=== PATIENT | female | born 1955 | race Caucasian/White ===

== ENCOUNTER 2020-02-06 07:43 | Outpatient (CLI) | payer MEDICARE, SELFPAY ==
--- NOTE | ~2020-02-06 | MM_ITS ---
EXAMINATION: MM screening [facility] BI w [facility] HISTORY: Screening mammogram TECHNIQUE: Craniocaudal and mediolateral oblique 3-D tomosynthesis images were obtained and synthetic 2-D images were generated. CAD analysis was submitted and interpreted. COMPARISON: No prior mammogram is available for comparison at this institution. BREAST PARENCHYMAL COMPOSITION: There are scattered areas of fibroglandular density. FINDINGS: There is no evidence of suspicious mass, calcification, or architectural distortion to sugg est malignancy in either breast. There has been no suspicious interval change. IMPRESSION: 1. No mammographic evidence of malignancy. 2. Recommend routine screening mammography in one year. BI-RADS Category 1: Negative Reviewed, dictated and finalized at location A.
== END 2020-02-06 07:44 | disposition home or self-care (01) ==
LOC: CHSIMG 07:46
PROVIDERS: PCP Internal Medicine; Visit Provider Internal Medicine
DX: Z12.31 Encounter for screening mammogram for malignant neoplasm of breast (principal)
CPT/HCPCS: 77063; 77067

== ENCOUNTER 2020-05-20 07:14 | Outpatient (CLI) | payer MEDICARE, SELFPAY ==
[2020-05-20 07:50] LABS: Hemoglobin A1C 9.3 % (<5.7)
[2020-05-20 07:55] LABS: Basophils Absolute Auto 0.08 K/mm3 (0.00-0.10); Basophils Percent Auto 0.9 % (0.0-1.0); Eosinophils Absolute Auto 0.34 K/mm3 (0.02-0.50); Eosinophils Percent Auto 3.7 % (1.0-6.0); Hematocrit 44.6 % (35.0-49.0); Hemoglobin 14.6 g/dL (12.0-15.0); Immature Granulocyte Absolute 0.02 K/mm3 (0.00-0.00); Immature Granulocyte Percent A 0.2 % (0.0-0.0); Lymphocytes Absolute Auto 3.24 K/mm3 (1.10-4.50); Lymphocytes Percent Auto 35.1 % (18.0-42.0); Mean Corpuscular HGB Conc 32.7 g/dL (32.0-36.0); Mean Corpuscular Hemoglobin 28.3 pg (27.0-31.0); Mean Corpuscular Volume 86.6 fL (78.0-102.0); Mean Platelet Volume 12.2 fl (9.2-11.8); Monocytes Absolute Auto 0.63 K/mm3 (0.10-0.90); Monocytes Percent Auto 6.8 % (2.0-11.0); Neutrophils Absolute Auto 4.9 K/mm3 (1.7-7.2); Neutrophils Percent Auto 53.3 % (50.0-70.0); Platelet Count Result 187 K/mm3 (150-420); Red Blood Count 5.15 M/mm3 (4.20-5.40); Red Cell Distribution Width 13.1 % (11.6-14.4); White Blood Count 9.2 K/mm3 (4.8-10.8)
[2020-05-20 08:13] LABS: Alanine Aminotransferase 44 U/L (14-59); Albumin Level 3.4 g/dL (3.4-5.0); Alkaline Phosphatase 136 U/L (46-116); Anion Gap 6.3 mmol/L (7-16); Aspartate Amino Transferase 25 U/L (15-37); Bilirubin,Total 0.4 mg/dL (0.00-1.00); Blood Urea Nitrogen 21 mg/dL (7-18); Calcium 9.1 mg/dL (8.5-10.1); Carbon Dioxide 35 mmol/L (21-32); Chloride 101 mmol/L (98-108); Cholesterol 131 mg/dL (0-200); Estimated Glomerular Filt Rate 49; Glucose 249 mg/dL (70-99); HDL Direct 48 mg/dL (40-60); LDL Cholesterol Calculated 46 mg/dL (<130); Osmolality Calculated 297 mOsm/kg (285-295); Potassium 4.3 mmol/L (3.5-5.1); Sodium 138 mmol/L (136-145); Total Protein 6.9 g/dL (6.4-8.2); Triglycerides 184 mg/dL (0-150)
== END 2020-05-20 07:15 | disposition home or self-care (01) ==
LOC: CHSLAB 07:15
PROVIDERS: PCP Internal Medicine; Visit Provider Internal Medicine
DX: E78.5 Hyperlipidemia, unspecified (principal); E11.9 Type 2 diabetes mellitus without complications; I10 Essential (primary) hypertension
CPT/HCPCS: 36415; 80053; 80061; 83036; 85025

== ENCOUNTER 2020-05-21 11:18 | Outpatient (CLI) | payer MEDICARE, SELFPAY ==
--- NOTE | ~2020-05-21 | XR_ITS ---
EXAMINATION: XR lumbar spine 2-3V DATE: 05/21/2020 11:48 INDICATION: Low back pain TECHNIQUE: Anteroposterior and lateral views of the lumbar spine, and cone-down lateral view of the l umbosacral junction were obtained. COMPARISON: None. FINDINGS: Bone alignment is normal. There is no fracture. The vertebral body heights are normal. Ther e is severe loss of intervertebral disc space height throughout the lumbar spine. Severe facet osteoa rthritis is also seen throughout the lumbar spine. Degenerative osteophytes project from the anterior endplates of multiple vertebral bodies. IMPRESSION: 1. Severe lumbar spondylosis without acute findings. Reviewed, dictated and finalized at location B.
--- NOTE | ~2020-05-21 | XR_ITS ---
EXAMINATION: XR hip BI wo pelvis INDICATION: Hip pain TECHNIQUE: Three views of each hip are obtained. COMPARISON: None available FINDINGS: Bone alignment is normal. There is no fracture. Mild hip osteoarthritis is noted. The soft tissues are unremarkable. IMPRESSION: 1. Mild osteoarthritis without acute osseous findings. Reviewed, dictated and finalized at location B.
== END 2020-05-21 11:19 | disposition home or self-care (01) ==
LOC: CHSIMG 11:19
PROVIDERS: PCP Internal Medicine; Visit Provider Internal Medicine
DX: M25.552 Pain in left hip (principal); M54.9 Dorsalgia, unspecified
CPT/HCPCS: 72100; 73521

== ENCOUNTER 2020-07-12 11:42 | Outpatient (CLI) | payer MEDICARE, SELFPAY ==
--- NOTE | ~2020-07-12 | XR_ITS ---
EXAMINATION: XR chest 2V EXAM DATE: 07/12/2020 12:03 INDICATION: Pulmonary nodule shortness of breath. TECHNIQUE: Frontal and lateral projections of the chest obtained and reviewed. Comparison is made to prior examination from 10/13/2017. FINDINGS: The lungs are clear. There are no pleural effusions. The cardiomediastinal silhouette is within normal limits. There is no pneumothorax suspected. The bones and soft tissues are unremarkab le. Left epigastric surgical clips. IMPRESSION: No acute cardiopulmonary findings. Reviewed, dictated and finalized at location A.
== END 2020-07-12 11:43 | disposition home or self-care (01) ==
LOC: CHSIMG 11:45
PROVIDERS: PCP Internal Medicine; Visit Provider Internal Medicine Pulmonary Disease
DX: R91.1 Solitary pulmonary nodule (principal)
CPT/HCPCS: 71046

== ENCOUNTER 2021-01-06 07:02 | Outpatient (CLI) | payer MEDICARE, SELFPAY ==
[2021-01-06 07:34] LABS: Basophils Absolute Auto 0.08 K/mm3 (0.00-0.10); Basophils Percent Auto 1.1 % (0.0-1.0); Eosinophils Absolute Auto 0.44 K/mm3 (0.02-0.50); Hematocrit 43.2 % (35.0-49.0); Hemoglobin 14.1 g/dL (12.0-15.0); Immature Granulocyte Absolute 0.02 K/mm3 (0.00-0.00); Immature Granulocyte Percent A 0.3 % (0.0-0.0); Lymphocytes Absolute Auto 2.67 K/mm3 (1.10-4.50); Lymphocytes Percent Auto 36.2 % (18.0-42.0); Mean Corpuscular HGB Conc 32.6 g/dL (32.0-36.0); Mean Corpuscular Hemoglobin 28.3 pg (27.0-31.0); Mean Corpuscular Volume 86.7 fL (78.0-102.0); Mean Platelet Volume 12.1 fl (9.2-11.8); Monocytes Absolute Auto 0.84 K/mm3 (0.10-0.90); Monocytes Percent Auto 11.4 % (2.0-11.0); Neutrophils Absolute Auto 3.3 K/mm3 (1.7-7.2); Platelet Count Result 196 K/mm3 (150-420); Red Blood Count 4.98 M/mm3 (4.20-5.40); Red Cell Distribution Width 13.3 % (11.6-14.4); White Blood Count 7.4 K/mm3 (4.8-10.8)
[2021-01-06 08:12] LABS: Alanine Aminotransferase 57 U/L (14-59); Albumin Level 3.6 g/dL (3.4-5.0); Alkaline Phosphatase 114 U/L (46-116); Anion Gap 9 mmol/L (8-16); Aspartate Amino Transferase 36 U/L (15-37); Bilirubin,Total 0.4 mg/dL (0.00-1.00); Blood Urea Nitrogen 24 mg/dL (7-18); Calcium 9.4 mg/dL (8.5-10.1); Carbon Dioxide 30 mmol/L (21-32); Chloride 104 mmol/L (98-108); Cholesterol 154 mg/dL (0-200); Estimated Glomerular Filt Rate 41; Glucose 150 mg/dL (70-99); HDL Direct 48 mg/dL (40-60); LDL Cholesterol Calculated 74 mg/dL (<130); Osmolality Calculated 303 mOsm/kg (285-295); Potassium 4.2 mmol/L (3.5-5.1); Sodium 143 mmol/L (136-145); Total Protein 7.1 g/dL (6.4-8.2); Triglycerides 162 mg/dL (0-150)
== END 2021-01-06 07:03 | disposition home or self-care (01) ==
LOC: CHSLAB 07:04
PROVIDERS: PCP Internal Medicine; Visit Provider Internal Medicine
DX: E11.9 Type 2 diabetes mellitus without complications (principal); E78.5 Hyperlipidemia, unspecified; I10 Essential (primary) hypertension
CPT/HCPCS: 36415; 80053; 80061; 83036; 85025

== ENCOUNTER 2021-02-19 08:19 | Emergency (ER) | payer MEDICARE, SELFPAY ==
--- NOTE | ~2021-02-19 | CT_ITS ---
EXAMINATION: CT abdomen pelvis wo con DATE: 02/19/2021 09:05 INDICATION: Right flank pain TECHNIQUE: Computed tomography (CT) of the abdomen and pelvis was performed without intravenous contr ast. The dose-length product was 1144.17 mGy-cm. Automated exposure control and iterative reconstruct ion technique were employed. COMPARISON: CT dated 10/16/2017 FINDINGS: Lung bases are unremarkable. No significant pleural or pericardial effusions. There are yasmin gical changes in the left upper abdomen. No significant vascular abnormality. There are surgical frey ges along the anterior abdominal wall. The liver, spleen, pancreas, adrenal glands and kidneys are unremarkable. No renal/ureteral stones or hydronephrosis. Nonobstructive bowel gas pattern. Moderate colonic fecal loading. Moderate lumbar sp ondylosis. IMPRESSION: 1. No acute abdominal abnormality. Reviewed, dictated and finalized at location B.
[2021-02-19 08:20] VITALS: BP 134/64; PULSE 71; RESP 18; TEMP 36.9; O2SAT 100
--- NOTE | 2021-02-19 08:24 | ED.GENADULT ---
HPI - General Adult General Chief complaint: Back Pain/Injury Stated complaint: AMBULANCE Time Seen by Provider: 02/19/21 08:23 Source: patient and EMS Mode of arrival: EMS Limitations: no limitations History of Present Illness HPI narrative: Pratibha is a 65F with a PMH of HTN, GERD, DMII, arthritis, HLD and eye spasms that presented to the ED with right flank pain. It started 2 days ago but became much worse today. It is in the right flank and mid back. It is associated with nausea but no vomiting. No diarrhea or constipation. No CP or SOB or abdominal pain. Related Data Home Medications Medication Instructions Recorded Confirmed aspirin 81 mg PO DAILY 02/19/21 02/19/21 atorvastatin 10 mg PO DAILY 02/19/21 02/19/21 insulin detemir U-100 [Levemir 30 unit SUBCUT QAM 02/19/21 02/19/21 FlexTouch U-100 Insuln] insulin detemir U-100 [Levemir 30 unit SUBCUT QPM 02/19/21 02/19/21 FlexTouch U-100 Insuln] losartan-hydrochlorothiazide 1 tablet PO DAILY 02/19/21 02/19/21 magnesium 400 mg PO BID 02/19/21 02/19/21 methylphenidate HCl 5 mg PO DAILY 02/19/21 02/19/21 nifedipine 90 mg PO DAILY 02/19/21 02/19/21 pantoprazole 40 mg PO DAILY 02/19/21 02/19/21 Allergies Allergy/AdvReac Type Severity Reaction Status Date / Time No Known Allergies Allergy Unknown Verified 03/13/15 07:31 Review of Systems Constitutional: Constitutional: Denies chills, Denies fever(s) and Denies weakness Eyes: Eyes: Reports no additional eye complaints ENT: Reports system reviewed and no additional complaints, except as documented Cardiovascular: Cardiovascular: Reports no additional cardiovascular complaints Respiratory: Respiratory: Reports no additional respiratory complaints Gastrointestinal: Gastrointestinal: Reports as per HPI Genitourinary: Genitourinary: Reports as per HPI Musculoskeletal: Musculoskeletal: Reports no additional musculoskeletal complaints Integumentary/Breasts: Skin/Breast: Reports system reviewed and no additional complaints, except as docu Neurologic: Reports system reviewed and no additional complaints, except as documented Psychiatric: Psychiatric: Reports no additional psychiatric complaints Endocrine: Endocrine: Reports no additional endocrine complaints Hematologic/Lymphatic: Hematologic/Lymphatic: Reports no additional hematologic/lymphatic complaints Allergic/Immunologic: Allergic/Immunologic: Reports no additional allergic/immunologic complaints Exam Const: General: no acute distress; No confusion Orientation/consciousness: patient oriented x3 Limitations: No altered mental status HENMT: Head: normal to inspection Mouth: Yes Normal oral and palatal mucosa present Eyes: Conjunctivae: conjunctivae normal Pupils: Equal, round and reactive pupils present Neck: Neck: normal visual inspection Chest: Chest palpation & inspection: normal inspection of the chest Resp: Effort & Inspection: normal respiratory effort Auscultation: clear to auscultation bilaterally Cardio: Rate: regular rate Rhythm: regular rhythm GI: Inspection: non-distended GI Palp: Yes Soft to palpation, No Tenderness to palpation present (GI), No Guarding due to palpation present (GI) and No Rigid due to palpation : Other: Right sided CVA tenderness Skin: General skin exam: normal color Rashes: no rashes Neuro: General: patient oriented x3 and moves all extremities Extrem: General: normal to inspection Psych: Mental Status: mental status grossly normal Course Course Emergency Course: Pratibha was evaluated. Ordered toradol and morphine for the pain and zofran for the nausea as well as labs and CT. Labs were largely unremarkable. UA looked contaminated but did show bacteria and WBC as well as trace leuk esterase. Will treat for UTI but pyelonephritis is unlikely given normal WBC and no fever. Given normal labs other abdominal process (pancreatitis, obstruction, infection) is unlikely and troponin is unlikely making atypi
[2021-02-19 08:31] LABS: Add Urine Microscopic? YES; Appearance Urine Sl Cloudy (Clear); Bilirubin Urine 1+ (Negative); Blood Urine Negative (Negative); Color Urine Yellow (Yellow); Glucose Urine UA Trace (Negative); Ketones Urine Trace (Negative); Leukocyte Esterase Ur Trace (Negative); Nitrate Urine Negative (Negative); Protein Urine 1+ (Negative); Specific Grav Ur 1.025 (1.010-1.020)
[2021-02-19] MEDS: MORPHINE SULFATE (*CRX) 4 MG/ML INJ IV PUSH (08:35)
[2021-02-19] MEDS: ONDANSETRON INJ 4 MG/2 ML VIAL IV PUSH (08:35)
[2021-02-19] MEDS: KETOROLAC 30 MG/ML VIAL (*BKC) IM (08:35)
[2021-02-19 08:40] LABS: Bacteria Urine 3+ /hpf; RBC Urine None seen /hpf (0-2); Squamous Epithelial Cell Urine Moderate /hpf (Few)
[2021-02-19 08:51] LABS: Basophils Absolute Auto 0.11 K/mm3 (0.00-0.10); Basophils Percent Auto 1.1 % (0.0-1.0); Eosinophils Absolute Auto 0.37 K/mm3 (0.02-0.50); Eosinophils Percent Auto 3.8 % (1.0-6.0); Hematocrit 43.3 % (35.0-49.0); Hemoglobin 13.9 g/dL (12.0-15.0); Immature Granulocyte Absolute 0.03 K/mm3 (0.00-0.00); Immature Granulocyte Percent A 0.3 % (0.0-0.0); Lymphocytes Absolute Auto 3.43 K/mm3 (1.10-4.50); Lymphocytes Percent Auto 35.3 % (18.0-42.0); Mean Corpuscular HGB Conc 32.1 g/dL (32.0-36.0); Mean Corpuscular Hemoglobin 27.9 pg (27.0-31.0); Mean Corpuscular Volume 86.8 fL (78.0-102.0); Mean Platelet Volume 11.9 fl (9.2-11.8); Monocytes Absolute Auto 0.65 K/mm3 (0.10-0.90); Monocytes Percent Auto 6.7 % (2.0-11.0); Neutrophils Absolute Auto 5.1 K/mm3 (1.7-7.2); Neutrophils Percent Auto 52.8 % (50.0-70.0); Platelet Count Result 188 K/mm3 (150-420); Red Blood Count 4.99 M/mm3 (4.20-5.40); Red Cell Distribution Width 13.4 % (11.6-14.4); White Blood Count 9.7 K/mm3 (4.8-10.8)
[2021-02-19 09:08] LABS: Alanine Aminotransferase 25 U/L (14-59); Albumin Level 3.3 g/dL (3.4-5.0); Alkaline Phosphatase 112 U/L (46-116); Anion Gap 8 mmol/L (8-16); Aspartate Amino Transferase 16 U/L (15-37); Bilirubin,Total 0.5 mg/dL (0.00-1.00); Blood Urea Nitrogen 27 mg/dL (7-18); Calcium 9.4 mg/dL (8.5-10.1); Carbon Dioxide 28 mmol/L (21-32); Chloride 101 mmol/L (98-108); Estimated Glomerular Filt Rate 44; Glucose 182 mg/dL (70-99); Lipase 78 U/L (73-393); Osmolality Calculated 294 mOsm/kg (285-295); Potassium 3.4 mmol/L (3.5-5.1); Sodium 137 mmol/L (136-145)
[2021-02-19 09:11] LABS: Troponin I < 4.0 ng/L (0.00-60.4)
[2021-02-19] MEDS: CEPHALEXIN 500 MG CAPSULE PO (09:30)
[2021-02-19 09:42] VITALS: BP 137/56; PULSE 72; O2SAT 97
== END 2021-02-19 09:43 | disposition home or self-care (01) ==
PROVIDERS: Emergency Provider Family Medicine; PCP Internal Medicine
DX: M54.6 Pain in thoracic spine (principal); N39.0 Urinary tract infection, site not specified
CPT/HCPCS: 36415; 74176; 80053; 81001; 83690; 84484; 85025; 96372; 96374; 96375; 99283; 99284; A9270; J1885; J2270; J2405

== ENCOUNTER 2021-04-22 13:15 | Outpatient (CLI) | payer MEDICARE, SELFPAY ==
--- NOTE | ~2021-04-22 | MM_ITS ---
EXAMINATION: MM screening [facility] BI w [facility] HISTORY: Screening TECHNIQUE: Craniocaudal and mediolateral oblique 3-D tomosynthesis images were obtained and synthetic 2-D images were generated. CAD analysis was submitted and interpreted. COMPARISON: Comparison to multiple prior studies sequentially, with oldest reviewed study dated 09/24. BREAST PARENCHYMAL COMPOSITION: There are scattered areas of fibroglandular density. FINDINGS: There is no evidence of suspicious mass, calcification, or architectural distortion to sugg est malignancy in either breast. There has been no suspicious interval change. IMPRESSION: 1. No mammographic evidence of malignancy. 2. Recommend routine screening mammography in one year. BI-RADS Category 1: Negative Reviewed, dictated and finalized at location A.
== END 2021-04-22 13:16 | disposition home or self-care (01) ==
PROVIDERS: PCP Internal Medicine; Visit Provider Internal Medicine
DX: Z12.31 Encounter for screening mammogram for malignant neoplasm of breast (principal)
CPT/HCPCS: 77063; 77067

== ENCOUNTER 2021-07-25 07:44 | Outpatient (CLI) | payer MEDICARE, SELFPAY ==
[2021-07-25 07:56] LABS: Basophils Absolute Auto 0.07 K/mm3 (0.00-0.10); Basophils Percent Auto 0.7 % (0.0-1.0); Eosinophils Absolute Auto 0.33 K/mm3 (0.02-0.50); Eosinophils Percent Auto 3.4 % (1.0-6.0); Hematocrit 43.1 % (35.0-42.0); Hemoglobin 14.3 g/dL (11.7-13.8); Immature Granulocyte Absolute 0.04 K/mm3 (0.00-0.00); Immature Granulocyte Percent A 0.4 % (0.0-0.0); Lymphocytes Absolute Auto 2.52 K/mm3 (1.10-4.50); Lymphocytes Percent Auto 25.7 % (18.0-42.0); Mean Corpuscular HGB Conc 33.2 g/dL (32.0-36.0); Mean Corpuscular Hemoglobin 28.3 pg (27.0-31.0); Mean Corpuscular Volume 85.2 fL (78.0-102.0); Mean Platelet Volume 10.8 fl (9.2-11.8); Monocytes Absolute Auto 0.81 K/mm3 (0.10-0.90); Monocytes Percent Auto 8.3 % (2.0-11.0); Neutrophils Percent Auto 61.5 % (50.0-70.0); Platelet Count Result 255 K/mm3 (150-420); Red Blood Count 5.06 M/mm3 (4.20-5.40); Red Cell Distribution Width 12.6 % (11.6-14.4); White Blood Count 9.8 K/mm3 (4.8-10.8)
[2021-07-25 08:08] LABS: Hemoglobin A1C 9.9 % (<5.7)
[2021-07-25 08:38] LABS: Alanine Aminotransferase 29 U/L (14-59); Albumin Level 3.3 g/dL (3.4-5.0); Alkaline Phosphatase 118 U/L (46-116); Anion Gap 11 mmol/L (8-16); Aspartate Amino Transferase 16 U/L (15-37); Bilirubin,Total 0.5 mg/dL (0.00-1.00); Blood Urea Nitrogen 27 mg/dL (7-18); Calcium 9.3 mg/dL (8.5-10.1); Carbon Dioxide 29 mmol/L (21-32); Chloride 102 mmol/L (98-108); Cholesterol 158 mg/dL (0-200); Estimated Glomerular Filt Rate 48; Glucose 244 mg/dL (70-99); HDL Direct 49 mg/dL (40-60); LDL Cholesterol Calculated 70 mg/dL (<130); Osmolality Calculated 307 mOsm/kg (285-295); Sodium 142 mmol/L (136-145); Thyroid Stimulating Hormone 1.33 uIU/mL (0.36-3.74); Total Protein 7.1 g/dL (6.4-8.2); Triglycerides 196 mg/dL (0-150)
== END 2021-07-25 07:45 | disposition home or self-care (01) ==
LOC: CHSLAB 07:47
PROVIDERS: PCP Internal Medicine; Visit Provider Internal Medicine
DX: E11.9 Type 2 diabetes mellitus without complications (principal); E78.5 Hyperlipidemia, unspecified; E66.9 Obesity, unspecified
CPT/HCPCS: 36415; 80053; 80061; 83036; 84443; 85025

== ENCOUNTER 2021-11-21 11:15 | Outpatient (CLI) | payer MEDICARE, SELFPAY ==
[2021-11-21 11:34] LABS: Basophils Absolute Auto 0.08 K/mm3 (0.00-0.10); Basophils Percent Auto 0.7 % (0.0-1.0); Eosinophils Absolute Auto 0.31 K/mm3 (0.02-0.50); Eosinophils Percent Auto 2.9 % (1.0-6.0); Hematocrit 47.4 % (35.0-42.0); Hemoglobin 15.6 g/dL (11.7-13.8); Immature Granulocyte Absolute 0.03 K/mm3 (0.00-0.00); Immature Granulocyte Percent A 0.3 % (0.0-0.0); Mean Corpuscular HGB Conc 32.9 g/dL (32.0-36.0); Mean Corpuscular Volume 84.9 fL (78.0-102.0); Mean Platelet Volume 11.8 fl (9.2-11.8); Monocytes Absolute Auto 0.72 K/mm3 (0.10-0.90); Monocytes Percent Auto 6.7 % (2.0-11.0); Neutrophils Absolute Auto 6.8 K/mm3 (1.7-7.2); Neutrophils Percent Auto 63.4 % (50.0-70.0); Platelet Count Result 259 K/mm3 (150-420); Red Blood Count 5.58 M/mm3 (4.20-5.40); Red Cell Distribution Width 12.6 % (11.6-14.4); White Blood Count 10.8 K/mm3 (4.8-10.8)
[2021-11-21 11:56] LABS: Anion Gap 8 mmol/L (8-16); Blood Urea Nitrogen 20 mg/dL (7-18); Calcium 9.6 mg/dL (8.5-10.1); Carbon Dioxide 34 mmol/L (21-32); Chloride 97 mmol/L (98-108); Estimated Glomerular Filt Rate 47; Glucose 138 mg/dL (70-99); Osmolality Calculated 292 mOsm/kg (285-295); Potassium 3.2 mmol/L (3.5-5.1); Sodium 139 mmol/L (136-145)
[2021-11-21 12:11] LABS: SARS-CoV-2 RNA PCR Negative (Negative)
== END 2021-11-21 11:16 | disposition home or self-care (01) ==
PROVIDERS: PCP Internal Medicine
DX: R94.39 Abnormal result of other cardiovascular function study (principal); Z01.810 Encounter for preprocedural cardiovascular examination; Z20.822 Contact with and (suspected) exposure to COVID-19
CPT/HCPCS: 36415; 80048; 85025; C9803; U0003; U0005

== ENCOUNTER 2021-12-30 07:45 | Outpatient (CLI) | payer MEDICARE, SELFPAY ==
[2021-12-30 08:25] LABS: Hemoglobin A1C 7.4 % (<5.7)
[2021-12-30 08:48] LABS: Alanine Aminotransferase 18 U/L (14-59); Albumin Level 3.3 g/dL (3.4-5.0); Alkaline Phosphatase 126 U/L (46-116); Anion Gap 9 mmol/L (8-16); Aspartate Amino Transferase 13 U/L (15-37); Bilirubin,Total 0.5 mg/dL (0.00-1.00); Blood Urea Nitrogen 17 mg/dL (7-18); Carbon Dioxide 34 mmol/L (21-32); Chloride 102 mmol/L (98-108); Cholesterol 146 mg/dL (0-200); Estimated Glomerular Filt Rate 45; Glucose 147 mg/dL (70-99); HDL Direct 57 mg/dL (40-60); LDL Cholesterol Calculated 65 mg/dL (<130); Osmolality Calculated 304 mOsm/kg (285-295); Potassium 3.4 mmol/L (3.5-5.1); Sodium 145 mmol/L (136-145); Total Protein 6.8 g/dL (6.4-8.2); Triglycerides 118 mg/dL (0-150)
== END 2021-12-30 07:46 | disposition home or self-care (01) ==
LOC: CHSLAB 07:48
PROVIDERS: PCP Internal Medicine; Visit Provider Internal Medicine
DX: E11.9 Type 2 diabetes mellitus without complications (principal); I10 Essential (primary) hypertension; E78.5 Hyperlipidemia, unspecified
CPT/HCPCS: 36415; 80053; 80061; 83036

== ENCOUNTER 2022-01-13 07:46 | Outpatient (CLI) | payer MEDICARE, SELFPAY ==
--- NOTE | ~2022-01-13 | XR_ITS ---
XR chest 2V 01/13/2022 08:31 Indication: Dyspnea Procedure: 2 view chest Comparison: Comparison to multiple prior studies sequentially, with oldest reviewed study dated 12/2012. Findings: Heart size normal. Small bilateral pleural effusions. No focal pneumonia, edema or pneumoth orax. No acute osseous abnormality. Impression: 1: Small bilateral pleural effusions. Reviewed, dictated and finalized at location A. Impression: 1: Small bilateral pleural effusions.
--- NOTE | ~2022-01-13 | XR_ITS ---
EXAMINATION: XR barium swallow DATE: 01/13/2022 08:33 INDICATION: Gastroesophageal reflux disease, dysphagia TECHNIQUE: The patient drank thick barium, gas-producing crystals, and thin barium. Fluoroscopy of th e hypopharynx and esophagus was performed. Fluoroscopy exposure time was 1.3 minutes. The DAP for thi s procedure was 11.397 Gycm2. COMPARISON: None. FINDINGS: There is no mass or stricture of the esophagus. There is prominent contraction of the crico pharyngeus muscle. Esophageal motility is normal. There is a small sliding hiatal hernia. There was m inimal spontaneous gastroesophageal reflux. IMPRESSION: 1. Small sliding hiatal hernia with minimal spontaneous gastroesophageal reflux. Reviewed, dictated and finalized at location K. IMPRESSION: 1. Small sliding hiatal hernia with minimal spontaneous gastroesophageal reflux .
--- NOTE | 2022-01-13 08:30 | ECHO_ITS ---
Patient Info Name: Pratibha Chaparro Age: 66 years : 1955 Gender: Female Ht: 68 in Wt: 278 lbs BSA: 2.52 m2 HR: 55 bpm BP: 133 / 79 mmHg Technical Quality: Good Exam Date: 01/13/2022 8:09 AM Exam Location: [facility] Patient Status: Outpatient Admit Date: 01/13/2022 Staff Ordering Physician: Jonathan Benitez MD Filler Shredding Machine Loader: Roxanna Singer Attending Provider: Jonathan Benitez MD Referring Physician: Emmanuel GARCIA; Exam Type: CA echo doppler color flow Study Info Indications R06.09 - Other forms of dyspnea Complete two-dimensional, color flow and Doppler transthoracic echocardiogram is performed. Strain analysis performed. Summary 1. Complete two-dimensional, color flow and Doppler transthoracic echocardiogram is performed. 2. Left ventricular chamber dimension is normal. 3. Left ventricular systolic function is normal, estimated at 60-65%. 4. There is mildly increased left ventricular wall thickness. 5. The left ventricular diastolic function is grade I diastolic dysfunction. 6. E/e' 14 is mildly elevated. 7. Global longitudinal strain is normal at -17.4%. 8. There is trace mitral valve regurgitation. 9. There is trace tricuspid valve regurgitation. 10. No pulmonary hypertension, estimated pulmonary arterial systolic pressure is 24 mmHg. Left Ventricle E/e' 14 is mildly elevated. Global longitudinal strain is normal at -17.4%. Left ventricular chamber dimension is normal. Left ventricular systolic function is normal, estimated at 60-65%. There is mildly increased left ventricular wall thickness. The left ventricular diastolic function is grade I diastolic dysfunction. Right Ventricle Right ventricular systolic function is normal and with normal TAPSE 2.1 cm. Right ventricular chamber dimension is normal. Left Atria Left atrial chamber dimension is normal. Right Atria Right atrial chamber dimension is normal. Aortic Valve The aortic valve is trileaflet. There is no aortic valve stenosis. There is no aortic valve regurgitation. Pulmonic Valve There is no pulmonic regurgitation. Mitral Valve There is no mitral valve stenosis. There is trace mitral valve regurgitation. Tricuspid Valve There is trace tricuspid valve regurgitation. No pulmonary hypertension, estimated pulmonary arterial systolic pressure is 24 mmHg. Pericardium/Pleural There is no pericardial effusion. Inferior Vena Cava Normal inferior vena cava with >50% collapse upon inspiration consistent with normal right atrial pressure, 5 mmHg. Aorta The aortic root size at the sinus of Valsalva is normal. Left Ventricular Outflow Tract Name Value Normal LVOT 2D LVOT Diameter 2.0 cm LVOT Doppler LVOT Peak Velocity 85 cm/s LVOT Peak Gradient 3 mmHg LVOT Mean Gradient 2 mmHg LVOT VTI 22 cm LVOT VTI/AV VTI Ratio 0.8 LVOT Stroke Volume 70 ml Mitral Valve
[2022-01-13 09:00] VITALS: PULSE 69; O2SAT 100
[2022-01-13 09:07] VITALS: PULSE 65; O2SAT 95
--- NOTE | 2022-01-13 09:26 | HOMEO2EVAL ---
Evaluation was performed at [facility] Home Oxygen Evaluation RC: Home Oxygen (O2) Evaluation Start: 01/13/22 09:17 Freq: Status: Active Protocol: RPE Activity Type Activity Date Activity User E-Sign Co-Sign Detail Recorded Client Recorded Date Recorded By Document 01/13/22 09:00 MARY [id number] 01/13/22 09:25 SJB Document 01/13/22 09:07 MARY [id number] 01/13/22 09:25 SJB 01/13/22 01/13/22 09:00 09:07 Home O2 Evaluation Test Phase Resting Exercise Oxygen Delivery Room Air Room Air Pulse Oximetry (90-100 %) 100 95 Pulse Rate (60-100 beats/min) 69 65 Activity Tolerance Excellent Rating of Perceived Dyspnea (PD) +1 Mild, Noticeable to the Participant but Not to an Observer Ambulation Distance (feet) 1,040 Ambulation Distance (meters) 316.97 Home Oxygen Evaluation Comments Will begin walk Pt walked on room air approx 1020 ft pushing pushing a wheelchair. wheelchair on room air. Sp02 remained at 95 % and above, HR stayed in the mid to lower 60s. Pt tolerated very well, talking through out the walk. Treatment Charges O2 Evaluation - Outpatient
--- NOTE | 2022-01-19 14:43 | P.PCNPFT_ITS ---
PFT Procedure Performed PFT Procedure Performed Spirometry with Pre/Post Bronchodilator Plethysmography (Lung Vol) Diffusing Cap (DLCO) Flow Vol Loop PFT Interpretation DOS: 01/13/2022 REQUESTING: Dr Benitez REASON FOR TESTING: Shortness of breath, COVID June 2021 PULMONARY FUNCTION TESTS Results are reliable and reproducible. Spirometry: Pre bronchodilator FEV1 is 82% predicted, 2.06 L normal. FVC is 85% predicted, 2.69 L, normal. FEV1 / FVC ratio was normal, 94% predicted. There is no change after bronchodilator administration. The forced mid expiratory flows [id number]% reduced at 64% predicted and this increases by 26% after bronchodilator. Lung volumes: Total lung capacity is normal 98% predicted. Residual volume is increased 126% predicted consistent with mild air trapping. RV/TLC is increased 50% which is consistent with air trapping. Airway resistance is incre ased, 280%. Diffusion: DLCO is 58% moderately decreased Flow volume loop: Normal. IMPRESSION: This spirometry shows normal spirometry, mild air trapping with increased airway resistance and moderate diffusion impairment. There is a decrease in forced mid-expiratory flows which can be seen in asthma, and clinical correlation is recommended. The most significant abnormality is the diffusion impairment, and this is not a feature of asthma. Mitra Jay MD
== END 2022-01-13 07:47 | disposition home or self-care (01) ==
LOC: CHSIMG 07:49
PROVIDERS: PCP Internal Medicine; Visit Provider Internal Medicine Pulmonary Disease
DX: K21.9 Gastro-esophageal reflux disease without esophagitis (principal); R13.10 Dysphagia, unspecified; R06.09 Other forms of dyspnea; Z87.891 Personal history of nicotine dependence
CPT/HCPCS: 71046; 74220; 93306; 94060; 94618; 94726; 94729

== ENCOUNTER 2022-03-17 16:14 | Outpatient (CLI) | payer MEDICARE, SELFPAY ==
[2022-03-17 16:37] LABS: Basophils Absolute Auto 0.11 K/mm3 (0.00-0.10); Eosinophils Absolute Auto 0.27 K/mm3 (0.02-0.50); Eosinophils Percent Auto 2.4 % (1.0-6.0); Hematocrit 45.8 % (35.0-42.0); Hemoglobin 14.7 g/dL (11.7-13.8); Immature Granulocyte Absolute 0.02 K/mm3 (0.00-0.00); Immature Granulocyte Percent A 0.2 % (0.0-0.0); Lymphocytes Absolute Auto 3.89 K/mm3 (1.10-4.50); Lymphocytes Percent Auto 35.2 % (18.0-42.0); Mean Corpuscular HGB Conc 32.1 g/dL (32.0-36.0); Mean Corpuscular Hemoglobin 27.6 pg (27.0-31.0); Mean Corpuscular Volume 85.9 fL (78.0-102.0); Mean Platelet Volume 12.1 fl (9.2-11.8); Monocytes Percent Auto 8.1 % (2.0-11.0); Neutrophils Absolute Auto 5.9 K/mm3 (1.7-7.2); Neutrophils Percent Auto 53.1 % (50.0-70.0); Platelet Count Result 227 K/mm3 (150-420); Red Blood Count 5.33 M/mm3 (4.20-5.40); Red Cell Distribution Width 13.1 % (11.6-14.4); White Blood Count 11.1 K/mm3 (4.8-10.8)
[2022-03-17 16:41] LABS: Add Urine Microscopic? NO; Appearance Urine Clear (Clear); Bilirubin Urine Negative (Negative); Blood Urine Negative (Negative); Color Urine Yellow (Yellow); Glucose Urine UA Negative (Negative); Ketones Urine Negative (Negative); Leukocyte Esterase Ur Negative LEU/UL (Negative); Nitrate Urine Negative (Negative); Protein Urine Negative (Negative); Urobilinogen Urine 0.2 mg/dL (0.2-1.0)
[2022-03-17 16:48] LABS: Alanine Aminotransferase 23 U/L (14-59); Albumin Level 3.3 g/dL (3.4-5.0); Alkaline Phosphatase 130 U/L (46-116); Amylase 36 U/L (25-115); Anion Gap 6 mmol/L (8-16); Aspartate Amino Transferase 16 U/L (15-37); Bilirubin,Total 0.5 mg/dL (0.00-1.00); Blood Urea Nitrogen 25 mg/dL (7-18); Calcium 9.4 mg/dL (8.5-10.1); Carbon Dioxide 33 mmol/L (21-32); Chloride 99 mmol/L (98-108); Estimated Glomerular Filt Rate 37; Glucose 209 mg/dL (70-99); Lipase 124 U/L (73-393); Osmolality Calculated 296 mOsm/kg (285-295); Potassium 3.5 mmol/L (3.5-5.1); Sodium 138 mmol/L (136-145); Total Protein 7.4 g/dL (6.4-8.2)
== END 2022-03-17 16:15 | disposition home or self-care (01) ==
LOC: CHSLAB 16:18
PROVIDERS: PCP Internal Medicine; Visit Provider Nurse Practitioner Family
DX: R10.9 Unspecified abdominal pain (principal)
CPT/HCPCS: 36415; 80053; 81003; 82150; 83690; 85025

== ENCOUNTER 2022-03-19 13:29 | Outpatient (CLI) | payer MEDICARE, SELFPAY ==
--- NOTE | ~2022-03-19 | CT_ITS ---
EXAMINATION: CT abdomen pelvis w con DATE: 03/19/2022 14:37 INDICATION: Right upper quadrant pain for one month. History of previous gastric bypass surgery and h ernia repair. Status post hysterectomy. TECHNIQUE: Computed tomography (CT) of the abdomen and pelvis was performed with 100 cc Omnipaque 300 intravenous contrast. The dose-length product was 1605.10 mGy-cm. Automated exposure control and ite rative reconstruction technique were employed. COMPARISON: CT dated 02/19/2021. FINDINGS: There is bibasilar atelectasis. Heart size normal. No significant pleural or pericardial ef fusion. There are surgical changes of gastric bypass. There are surgical changes of the anterior abdo anais wall. No significant vascular abnormality. No lymphadenopathy. Fatty infiltration of the liver. Gallbladder is present. The spleen, pancreas, adrenal glands and kid neys are unremarkable. No renal stones or hydronephrosis are identified. No ureteral stones. Bladder is unremarkable. The uterus is surgically absent. Nonobstructive bowel gas pattern. No free air or fr ee fluid. There is moderate debris in the stomach which is mildly distended, nonspecific. No obstruct ion identified. There is subcutaneous edema of the left anterior abdominal wall which may relate to r ecent injections. Correlate clinically. Severe lower thoracic and lumbar spondylosis. IMPRESSION: 1. No acute abdominal abnormality. Reviewed, dictated and finalized at location A.
== END 2022-03-19 13:30 | disposition home or self-care (01) ==
LOC: CHSIMG 13:30
PROVIDERS: PCP Internal Medicine; Visit Provider Nurse Practitioner Family
DX: R10.9 Unspecified abdominal pain (principal)
CPT/HCPCS: 74177; Q9967

== ENCOUNTER 2022-04-08 08:00 | Outpatient (CLI) | payer MEDICARE, SELFPAY ==
[2022-04-08 08:16] LABS: Basophils Absolute Auto 0.11 K/mm3 (0.00-0.10); Basophils Percent Auto 1.1 % (0.0-1.0); Eosinophils Absolute Auto 0.36 K/mm3 (0.02-0.50); Eosinophils Percent Auto 3.6 % (1.0-6.0); Hematocrit 43.9 % (35.0-42.0); Hemoglobin 14.3 g/dL (11.7-13.8); Immature Granulocyte Absolute 0.03 K/mm3 (0.00-0.00); Immature Granulocyte Percent A 0.3 % (0.0-0.0); Lymphocytes Absolute Auto 3.09 K/mm3 (1.10-4.50); Lymphocytes Percent Auto 31.3 % (18.0-42.0); Mean Corpuscular HGB Conc 32.6 g/dL (32.0-36.0); Mean Corpuscular Hemoglobin 28.3 pg (27.0-31.0); Mean Corpuscular Volume 86.8 fL (78.0-102.0); Mean Platelet Volume 11.7 fl (9.2-11.8); Monocytes Absolute Auto 0.79 K/mm3 (0.10-0.90); Neutrophils Absolute Auto 5.5 K/mm3 (1.7-7.2); Neutrophils Percent Auto 55.7 % (50.0-70.0); Platelet Count Result 220 K/mm3 (150-420); Red Blood Count 5.06 M/mm3 (4.20-5.40); Red Cell Distribution Width 14.3 % (11.6-14.4); White Blood Count 9.9 K/mm3 (4.8-10.8)
[2022-04-08 08:25] LABS: Hemoglobin A1C 8.6 % (<5.7)
[2022-04-08 08:31] LABS: Alanine Aminotransferase 27 U/L (14-59); Albumin Level 3.2 g/dL (3.4-5.0); Alkaline Phosphatase 113 U/L (46-116); Anion Gap 4 mmol/L (8-16); Aspartate Amino Transferase 20 U/L (15-37); Bilirubin,Total 0.5 mg/dL (0.00-1.00); Blood Urea Nitrogen 23 mg/dL (7-18); Calcium 9.2 mg/dL (8.5-10.1); Carbon Dioxide 35 mmol/L (21-32); Chloride 100 mmol/L (98-108); Estimated Glomerular Filt Rate 41; Glucose 187 mg/dL (70-99); Osmolality Calculated 296 mOsm/kg (285-295); Potassium 3.7 mmol/L (3.5-5.1); Sodium 139 mmol/L (136-145); Total Protein 7.2 g/dL (6.4-8.2)
== END 2022-04-08 08:01 | disposition home or self-care (01) ==
LOC: CHSLAB 08:02
PROVIDERS: PCP Internal Medicine; Visit Provider Internal Medicine
DX: E11.9 Type 2 diabetes mellitus without complications (principal); I10 Essential (primary) hypertension
CPT/HCPCS: 36415; 80053; 83036; 85025

== ENCOUNTER 2022-04-29 08:41 | Outpatient (CLI) | payer MEDICARE, SELFPAY ==
--- NOTE | ~2022-04-29 | XR_ITS ---
XR knee LT 3V 04/29/2022 08:59 Indication: Left knee pain Procedure: 3 views left knee Comparison: No prior studies for comparison. Findings: There is mild osteoarthritis of the left knee. No fracture, subluxation or dislocation. No significant joint effusion. No foreign bodies. Impression: 1: Mild osteoarthritis of the left knee. Reviewed, dictated and finalized at location A. Impression: 1: Mild osteoarthritis of the left knee.
== END 2022-04-29 08:42 | disposition home or self-care (01) ==
LOC: CHSIMG 08:42
PROVIDERS: PCP Internal Medicine; Visit Provider Internal Medicine
DX: M25.562 Pain in left knee (principal)
CPT/HCPCS: 73562

== ENCOUNTER 2022-05-08 07:25 | Outpatient (CLI) | payer MEDICARE, SELFPAY ==
--- NOTE | ~2022-05-08 | MM_ITS ---
EXAMINATION: MM screening [facility] BI w [facility] HISTORY: Screening mammogram TECHNIQUE: Craniocaudal and mediolateral oblique 3-D tomosynthesis images were obtained and synthetic 2-D images were generated. CAD analysis was submitted and interpreted. COMPARISON: 04/22/2021, 02/06/2020, 12/28/2018 BREAST PARENCHYMAL COMPOSITION: There are scattered areas of fibroglandular density. FINDINGS: There is no suspicious mass, calcification, or architectural distortion to suggest malignan cy in either breast. There has been no suspicious interval change. IMPRESSION: 1. No mammographic evidence of malignancy. 2. Recommend routine screening mammography in one year. BI-RADS Category 1: Negative Reviewed, dictated and finalized at location A.
[2022-05-08 07:44] LABS: Basophils Absolute Auto 0.08 K/mm3 (0.00-0.10); Eosinophils Absolute Auto 0.23 K/mm3 (0.02-0.50); Hematocrit 47.1 % (35.0-42.0); Hemoglobin 15.2 g/dL (11.7-13.8); Immature Granulocyte Absolute 0.02 K/mm3 (0.00-0.00); Immature Granulocyte Percent A 0.3 % (0.0-0.0); Lymphocytes Absolute Auto 3.71 K/mm3 (1.10-4.50); Lymphocytes Percent Auto 48.3 % (18.0-42.0); Mean Corpuscular HGB Conc 32.3 g/dL (32.0-36.0); Mean Corpuscular Hemoglobin 27.8 pg (27.0-31.0); Mean Corpuscular Volume 86.3 fL (78.0-102.0); Mean Platelet Volume 11.3 fl (9.2-11.8); Monocytes Percent Auto 10.4 % (2.0-11.0); Neutrophils Absolute Auto 2.8 K/mm3 (1.7-7.2); Platelet Count Result 189 K/mm3 (150-420); Red Blood Count 5.46 M/mm3 (4.20-5.40); White Blood Count 7.7 K/mm3 (4.8-10.8)
[2022-05-08 09:10] LABS: Ferritin 73 ng/mL (8-252); Iron 66 ug/dL (50-170); Percent Iron Saturation 20 % (12-57); Vitamin B12 516 pg/mL (193-986)
[2022-05-08 09:11] LABS: Folic Acid > 20.0 ng/mL (8.6->20)
[2022-05-12 12:13] LABS: Vitamin D 1,25 (OH)2 Total 41 pg/mL (18-72); Vitamin D2 1,25 (OH)2 <8 pg/mL; Vitamin D3 1,25 (OH)2 41 pg/mL
== END 2022-05-08 07:26 | disposition home or self-care (01) ==
LOC: CHSIMG 07:26
PROVIDERS: Nurse Practitioner Family; PCP Internal Medicine; Visit Provider Internal Medicine
DX: R53.83 Other fatigue (principal); E55.9 Vitamin D deficiency, unspecified; E11.9 Type 2 diabetes mellitus without complications; Z12.31 Encounter for screening mammogram for malignant neoplasm of breast
CPT/HCPCS: 36415; 77063; 77067; 82607; 82652; 82728; 82746; 83540; 83550; 85025

== ENCOUNTER 2022-05-13 10:53 | Outpatient (CLI) | payer MEDICARE, SELFPAY ==
--- NOTE | ~2022-05-13 | XR_ITS ---
XR chest 2V DATE: 05/13/2022 11:17 INDICATION: Shortness of breath for 4 to 5 months. History of left lung abscess, left lung surgery, 1 979 TECHNIQUE: 2 views COMPARISON: 01/13/2022 2 view chest FINDINGS: Normal heart size. No hilar or mediastinal enlargement. Chronic mild blunting of the costop hrenic angles. No pleural effusion or pulmonary mass congestion or pneumothorax is detected. No pulmo nary infiltrate or consolidation. Postoperative changes of the left upper quadrant of the abdomen. IMPRESSION: No active cardiac pulmonary disease Chronic mild blunting of the costophrenic angles Postoperative change of the left upper abdomen Reviewed, dictated and finalized at location B.
--- NOTE | ~2022-05-13 | NM_ITS ---
EXAMINATION: NM pulmonary perfusion DATE: 05/13/2022 12:22 INDICATION: Dyspnea. Chest pain. TECHNIQUE: 5.1 mCi Tc-99m MAA by intravenous route. Scintigraphic images of the chest were obtained. COMPARISON: FINDINGS: There is relatively homogeneous perfusion throughout the lungs. No discrete fusion defect identified . IMPRESSION: 1. Low probability for pulmonary embolism. Reviewed, dictated and finalized at location A.
== END 2022-05-13 10:54 | disposition home or self-care (01) ==
LOC: CHSIMG 10:54
PROVIDERS: PCP Internal Medicine; Visit Provider Nurse Practitioner Family
DX: R06.09 Other forms of dyspnea (principal); R07.9 Chest pain, unspecified
CPT/HCPCS: 71046; 78580; A9540

== ENCOUNTER 2023-03-03 09:10 | Outpatient (CLI) | payer MEDICARE, SELFPAY ==
[2023-03-03 09:38] LABS: Creatinine Urine 116.68 mg/dL (40-278); MALB Creatinine Ratio 20.4 mg/g (0-30); Microalbumin Urine Random 23.9 mg/L
[2023-03-03 09:42] LABS: Hemoglobin A1C 7.8 % (<5.7)
[2023-03-03 10:28] LABS: Alanine Aminotransferase 23 U/L (14-59); Albumin Level 3.3 g/dL (3.4-5.0); Alkaline Phosphatase 93 U/L (46-116); Anion Gap 6 mmol/L (8-16); Aspartate Amino Transferase 16 U/L (15-37); Bilirubin,Total 0.7 mg/dL (0.00-1.00); Blood Urea Nitrogen 21 mg/dL (7-18); Calcium 10.4 mg/dL (8.5-10.1); Carbon Dioxide 34 mmol/L (21-32); Chloride 103 mmol/L (98-108); Cholesterol 140 mg/dL (0-200); Estimated Glomerular Filt Rate 53; Glucose 87 mg/dL (70-99); HDL Direct 56 mg/dL (40-60); LDL Cholesterol Calculated 61 mg/dL (<130); Osmolality Calculated 298 mOsm/kg (285-295); Potassium 4.4 mmol/L (3.5-5.1); Sodium 143 mmol/L (136-145); Thyroid Stimulating Hormone 2.52 uIU/mL (0.36-3.74); Total Protein 6.6 g/dL (6.4-8.2); Triglycerides 113 mg/dL (0-150)
== END 2023-03-03 09:11 | disposition home or self-care (01) ==
LOC: CHSLAB 09:11
PROVIDERS: PCP Internal Medicine; Visit Provider Internal Medicine
DX: E11.9 Type 2 diabetes mellitus without complications (principal); E78.5 Hyperlipidemia, unspecified; I10 Essential (primary) hypertension
CPT/HCPCS: 36415; 80053; 80061; 82043; 83036; 84443

== ENCOUNTER 2023-05-21 07:15 | Outpatient (CLI) | payer MEDICARE, SELFPAY ==
--- NOTE | ~2023-05-21 | MM_ITS ---
EXAMINATION: MM screening [facility] BI w [facility] HISTORY: Screening mammogram TECHNIQUE: Craniocaudal and mediolateral oblique 3-D tomosynthesis images were obtained and synthetic 2-D images were generated. CAD analysis was submitted and interpreted. COMPARISON: 05/08/2022, 04/22/2021, 02/06/2020 BREAST PARENCHYMAL COMPOSITION: The breasts are almost entirely fatty. FINDINGS: No suspicious mass, calcification, or architectural distortion are identified in either antonio ast to suggest malignancy. There has been no suspicious interval change. IMPRESSION: 1. No mammographic evidence of malignancy. 2. Recommend routine screening mammography in one year. BI-RADS Category 1: Negative Reviewed, dictated and finalized at location A.
== END 2023-05-21 07:16 | disposition home or self-care (01) ==
LOC: CHSIMG 07:16
PROVIDERS: PCP Internal Medicine; Visit Provider Internal Medicine
DX: Z12.31 Encounter for screening mammogram for malignant neoplasm of breast (principal)
CPT/HCPCS: 77063; 77067

== ENCOUNTER 2023-06-14 07:21 | Outpatient (CLI) | payer MEDICARE, SELFPAY ==
[2023-06-14 07:34] LABS: Basophils Absolute Auto 0.12 K/mm3 (0.00-0.10); Basophils Percent Auto 1.2 % (0.0-1.0); Eosinophils Absolute Auto 0.26 K/mm3 (0.02-0.50); Eosinophils Percent Auto 2.6 % (1.0-6.0); Hematocrit 44.1 % (35.0-42.0); Hemoglobin 14.6 g/dL (11.7-13.8); Immature Granulocyte Absolute 0.04 K/mm3 (0.00-0.00); Immature Granulocyte Percent A 0.4 % (0.0-0.0); Lymphocytes Absolute Auto 3.02 K/mm3 (1.10-4.50); Lymphocytes Percent Auto 30.2 % (18.0-42.0); Mean Corpuscular HGB Conc 33.1 g/dL (32.0-36.0); Mean Corpuscular Hemoglobin 29.1 pg (27.0-31.0); Mean Platelet Volume 10.9 fl (9.2-11.8); Monocytes Absolute Auto 0.75 K/mm3 (0.10-0.90); Monocytes Percent Auto 7.5 % (2.0-11.0); Neutrophils Absolute Auto 5.8 K/mm3 (1.7-7.2); Neutrophils Percent Auto 58.1 % (50.0-70.0); Platelet Count Result 240 K/mm3 (150-420); Red Blood Count 5.01 M/mm3 (4.20-5.40)
[2023-06-14 07:53] LABS: Hemoglobin A1C 6.8 % (<5.7)
[2023-06-14 08:12] LABS: Alanine Aminotransferase 24 U/L (14-59); Albumin Level 3.3 g/dL (3.4-5.0); Alkaline Phosphatase 88 U/L (46-116); Anion Gap 2 mmol/L (8-16); Aspartate Amino Transferase 18 U/L (15-37); Bilirubin,Total 0.6 mg/dL (0.00-1.00); Blood Urea Nitrogen 16 mg/dL (7-18); Calcium 9.1 mg/dL (8.5-10.1); Carbon Dioxide 36 mmol/L (21-32); Chloride 101 mmol/L (98-108); Cholesterol 127 mg/dL (0-200); Estimated Glomerular Filt Rate 52; Glucose 124 mg/dL (70-99); HDL Direct 51 mg/dL (40-60); LDL Cholesterol Calculated 49 mg/dL (<130); Osmolality Calculated 290 mOsm/kg (285-295); Potassium 4.4 mmol/L (3.5-5.1); Sodium 139 mmol/L (136-145); Total Protein 6.2 g/dL (6.4-8.2); Triglycerides 134 mg/dL (0-150)
== END 2023-06-14 07:22 | disposition home or self-care (01) ==
LOC: CHSLAB 07:23
PROVIDERS: PCP Internal Medicine; Visit Provider Internal Medicine
DX: E11.9 Type 2 diabetes mellitus without complications (principal); I10 Essential (primary) hypertension
CPT/HCPCS: 36415; 80053; 80061; 83036; 85025

== ENCOUNTER 2023-12-11 07:18 | Outpatient (CLI) | payer MEDICARE, SELFPAY ==
[2023-12-11 07:49] LABS: Appearance Urine Clear (Clear); Basophils Absolute Auto 0.15 K/mm3 (0.00-0.10); Basophils Percent Auto 1.7 % (0.0-1.0); Bilirubin Urine Negative (Negative); Blood Urine Negative (Negative); Color Urine Light Yellow (Yellow); Eosinophils Absolute Auto 0.36 K/mm3 (0.02-0.50); Glucose Urine UA Negative (Negative); Hematocrit 44.7 % (35.0-42.0); Immature Granulocyte Absolute 0.02 K/mm3 (0.00-0.00); Immature Granulocyte Percent A 0.2 % (0.0-0.0); Ketones Urine Negative (Negative); Leukocyte Esterase Ur Trace (Negative); Lymphocytes Absolute Auto 3.56 K/mm3 (1.10-4.50); Lymphocytes Percent Auto 39.5 % (18.0-42.0); Mean Corpuscular HGB Conc 33.6 g/dL (32.0-36.0); Mean Corpuscular Hemoglobin 28.5 pg (27.0-31.0); Mean Corpuscular Volume 84.8 fL (78.0-102.0); Mean Platelet Volume 11.7 fl (9.2-11.8); Monocytes Absolute Auto 0.63 K/mm3 (0.10-0.90); Neutrophils Absolute Auto 4.3 K/mm3 (1.7-7.2); Neutrophils Percent Auto 47.6 % (50.0-70.0); Nitrate Urine Negative (Negative); Platelet Count Result 228 K/mm3 (150-420); Protein Urine Negative (Negative); Red Blood Count 5.27 M/mm3 (4.20-5.40); Red Cell Distribution Width 12.9 % (11.6-14.4); Urobilinogen Urine 0.2 mg/dL (0.2-1.0); pH Urine 6.5 (5.0-8.0)
[2023-12-11 07:55] LABS: Creatinine Urine 77.43 mg/dL (40-278); MALB Creatinine Ratio 16.7 mg/g (0-30); Microalbumin Urine Random < 13.0 mg/L
[2023-12-11 07:56] LABS: Add Urine Microscopic? YES; Bacteria Urine 4+ /hpf; RBC Urine None seen /hpf (0-2); Squamous Epithelial Cell Urine Few /hpf (Few)
[2023-12-11 08:07] LABS: Hemoglobin A1C 6.7 % (<5.7)
[2023-12-11 08:12] LABS: Alanine Aminotransferase 24 U/L (14-59); Albumin Level 3.3 g/dL (3.4-5.0); Alkaline Phosphatase 110 U/L (46-116); Anion Gap 8 mmol/L (8-16); Aspartate Amino Transferase 15 U/L (15-37); Bilirubin,Total 0.6 mg/dL (0.00-1.00); Blood Urea Nitrogen 16 mg/dL (7-18); Calcium 9.3 mg/dL (8.5-10.1); Carbon Dioxide 32 mmol/L (21-32); Chloride 95 mmol/L (98-108); Cholesterol 126 mg/dL (0-200); Estimated Glomerular Filt Rate 46; Glucose 134 mg/dL (70-99); HDL Direct 53 mg/dL (40-60); LDL Cholesterol Calculated 41 mg/dL (<130); Osmolality Calculated 283 mOsm/kg (285-295); Potassium 3.7 mmol/L (3.5-5.1); Sodium 135 mmol/L (136-145); Thyroid Stimulating Hormone 3.85 uIU/mL (0.36-3.74); Total Protein 6.4 g/dL (6.4-8.2); Triglycerides 162 mg/dL (0-150)
== END 2023-12-11 07:19 | disposition home or self-care (01) ==
PROVIDERS: PCP Internal Medicine; Visit Provider Internal Medicine
DX: I10 Essential (primary) hypertension (principal); E11.9 Type 2 diabetes mellitus without complications; E78.5 Hyperlipidemia, unspecified
CPT/HCPCS: 36415; 80053; 80061; 81001; 82043; 83036; 84443; 85025

== ENCOUNTER 2024-05-23 09:11 | Outpatient (CLI) | payer MEDICARE, SELFPAY ==
[2024-05-23 09:32] LABS: Mean Corpuscular HGB Conc 33.3 g/dL (32-36); Mean Corpuscular Hemoglobin 27.9 pg (27.0-31.0); Mean Corpuscular Volume 83.6 fL (78.0-102.0); Mean Platelet Volume 11.1 fl (9.2-11.8); Platelet Count Result 274 K/mm3 (150-420); Red Blood Count 5.38 M/mm3 (4.20-5.40); Red Cell Distribution Width 12.7 % (11.6-14.4); White Blood Count 12.1 K/mm3 (4.8-10.8)
[2024-05-23 09:42] LABS: Hemoglobin A1C 6.6 % (<5.7)
[2024-05-23 10:20] LABS: Alanine Aminotransferase 17 U/L (14-59); Albumin Level 3.2 g/dL (3.4-5.0); Alkaline Phosphatase 88 U/L (46-116); Anion Gap 5 mmol/L (4-12); Aspartate Amino Transferase 15 U/L (15-37); Bilirubin,Total 0.7 mg/dL (0.00-1.00); Blood Urea Nitrogen 22 mg/dL (7-18); Calcium 9.4 mg/dL (8.5-10.1); Carbon Dioxide 34 mmol/L (21-32); Chloride 93 mmol/L (98-108); Cholesterol 123 mg/dL (0-200); Estimated Glomerular Filt Rate 53; Glucose 89 mg/dL (70-99); HDL Direct 56 mg/dL (40-60); LDL Cholesterol Calculated 48 mg/dL (<130); Osmolality Calculated 276 mOsm/kg (285-295); Potassium 3.6 mmol/L (3.5-5.1); Sodium 132 mmol/L (136-145); Thyroid Stimulating Hormone 1.16 uIU/mL (0.36-3.74); Total Protein 6.6 g/dL (6.4-8.2); Triglycerides 96 mg/dL (0-150)
== END 2024-05-23 09:12 | disposition home or self-care (01) ==
LOC: CHSLAB 09:13
PROVIDERS: PCP Internal Medicine; Visit Provider Internal Medicine
DX: E11.65 Type 2 diabetes mellitus with hyperglycemia (principal); E78.5 Hyperlipidemia, unspecified; I10 Essential (primary) hypertension
CPT/HCPCS: 36415; 80053; 80061; 83036; 84443; 85027

== ENCOUNTER 2024-06-15 11:35 | Outpatient (CLI) | payer MEDICARE, SELFPAY ==
--- NOTE | ~2024-06-15 | MM_ITS ---
EXAMINATION: MM screening [facility] BI w [facility] HISTORY: Screening TECHNIQUE: Craniocaudal and mediolateral oblique 3-D tomosynthesis images were obtained and synthetic 2-D images were generated. CAD analysis was submitted and interpreted. COMPARISON: Comparison to multiple prior studies sequentially, with oldest reviewed study dated 05/2018. BREAST PARENCHYMAL COMPOSITION: Not Dense: The breasts are almost entirely fatty. FINDINGS: There is no evidence of suspicious mass, calcification, or architectural distortion to sugg est malignancy in either breast. There has been no suspicious interval change. IMPRESSION: 1. No mammographic evidence of malignancy. 2. Recommend routine screening mammography in one year. BI-RADS Category 1: Negative Reviewed, dictated and finalized at location B.
== END 2024-06-15 11:36 | disposition home or self-care (01) ==
PROVIDERS: PCP Internal Medicine; Visit Provider Internal Medicine
DX: Z12.31 Encounter for screening mammogram for malignant neoplasm of breast (principal)
CPT/HCPCS: 77063; 77067

== ENCOUNTER 2024-06-27 13:57 | Outpatient (RCR) | payer MEDICARE, SELFPAY ==
--- NOTE | 2024-06-27 15:12 | PTOPEVAL1 ---
Assessment and note entered by Carmela Boyer DPT Evaluation Information Diagnosis low back pain Other ICD-10 Condition Codes ( m54.59 PT) Onset 06/13/24 Subjective Information Patient reports she has had a history of low back pain. She reports that she has had PT with no success. She reports in the past she has had injections that has helped with pain. She reports that her back pain is worse with walking, standing , sitting on hard chairs and sleeping. She reports if she sits for a short period of time she is able to get back up and keep going. She reports Aleve will help to decrease pain. 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 She denies radiating pain but does report her R hip hurts. Reported Pain Level Pain Score 1: Self Report Assessment PT Clinical Summary Mrs. Chaparro is a 69 year female who presents to PT with low back pain. She demonstrates flatten spine throughout, decrease lumbar mobility, decreased B LE strength and decreased B LE flexibility impairing her ability to walk long distances to sporting events, stand to perform house hold tasks and sit for long periods of time. She would benefit from skilled PT to address impairments and return to PLOF. Plan of Care Interventions Electrical Stimulation,Gait Training,Hot Pack/Cold Pack,Manual Therapy,Mechanical Traction,Neuro Re- education,Patient/Caregiver Educati,Therapeutic Activities,Therapeutic Exercise PT Services Indicated Yes Treatment Frequency and 3x weekly for 12 visits Duration These treatments will address the objective and functional deficits as defined above. The patient will be advanced safely and appropriately in order for the patient to progress towards his/her prior level of function. Additional exercises will be introduced and as well as a comprehensive home exercise program upon discharge, if needed, ?to ensure carryover of functional gains achieved in the clinic. This treatment plan has been reviewed and agreement upon by the patient.
--- NOTE | 2024-06-29 13:04 | PCPTNOTE ---
Cancelled session. Reports she has another appointment.
--- NOTE | 2024-08-02 10:30 | OPREHPOC ---
Outpatient Therapy Plan of Care This is a Multidisciplinary Plan of Care that may contain components documented by all disciplines (PT, OT, and ST.) PT Problem 1 PT Problem #1 Knowledge Deficit PT Goal 1 Goal / Goal Update Patient to demonstrate independence with HEP Target Visit 5 Progress Met PT Problem 2 PT Problem #2 Pain PT Goal 1 Goal / Goal Update 1. Patient to report highest pain at 2/10 -not met 2. Patient to report ability to sleep with no increase in low back pain -not met Target Visit 12 Progress Not Met PT Problem 3 PT Problem #3 Impaired Strength PT Goal 1 Goal / Goal Update Patient to demonstrate 4+/5 B LE strength to improve ability to ambulate to her [employer] games Target Visit 12 Progress Not Met PT Problem 4 PT Problem #4 Impaired Functional Mobil PT Goal 1 Goal / Goal Update 1. Patient to improve KETTY by 20% -not met 2. Patient to complete 6 min walk test with no seated rest break -not met 3. Patient to demonstrate 20 deg B HS length to improve ability to stand to complete house hold tasks -met Target Visit 12 Progress Partially Met
--- NOTE | 2024-08-02 10:30 | PTOPDC ---
Assessment and note entered by Teresa Whyte, PT Evaluation Information Assessment Status Discharge Diagnosis low back pain ICD-10 Condition Codes (PT) Pain in low back M54.50 Other ICD-10 Condition Codes ( M54.59 PT) Onset 06/13/24 Subjective Information Pratibha Chaparro reports she had a worsening of pain about 2 weeks ago but now it is back to the way it was when she first started PT. She notes she still has difficulty walking more than 200 feet before needing to sit and she still can not stand more than 5 minutes at a time. 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 She has a MRI scheduled on 08/27/24 and she wants to hold on PT until then. She is using Aleve and ibuprofen for pain relief. Gabapentin was tried but makes her too groggy. Reported Pain Level Pain Score 2: Self Report Assessment PT Clinical Summary Pratibha Chaparro has completed 12 skilled PT visits for low back pain. She is reporting no change in her pain and she still limited to walk about 200 feet without a break and standing less than 30 minutes. She is scheduled to have a MRI on 08/27/24 and would like to discontinue PT. She objectively demonstrates decreased and painful lumbar AROM, decreased core and hip strength, decreased tolerance for walking, and decreased functional abilities. She has improved her hamstring flexibility since initiating PT but no other goals were met. She will be discharged to an independent [facility]. Plan of Care PT Services Indicated No
== END 2024-08-02 10:34 | disposition home or self-care (01) ==
LOC: CHSPT 13:57
PROVIDERS: Visit Provider Nurse Practitioner Family
DX: M54.59 Other low back pain (principal); M25.551 Pain in right hip
CPT/HCPCS: 97014; 97110; 97140; 97161; 97530; 97750; G0283

== ENCOUNTER 2024-08-01 00:15 | Day surgery (SDC) | payer MEDICARE, SELFPAY ==
[2024-05-02 15:26] VITALS: BMI 41.1
--- NOTE | 2024-06-23 10:17 | SUR.PREOP ---
Patient called to reschedule her colonoscopy due to doctor not being unavailable. Message left on pt's voicemail.
[2024-08-01 11:52] VITALS: BP 140/83; PULSE 70; RESP 18; TEMP 36.4; O2SAT 100
--- NOTE | 2024-08-01 12:07 | WPDANESEPPF ---
Anes - Initial Pre Proc Eval Procedure: Operation Date: 08/01/24 13:00 Proposed Procedures p Colonoscopy - Markel Solo MD Date/Time: 08/01/24 12:07 Surgeon: Markel Solo MD Pre Op Diagnosis: hx colon polyps Patient Data Age: 69 Gender: F Height: 1.73 m Weight: 111.5 kg Last Vital Signs Temp 97.5 F L 08/01/24 11:52 Pulse 70 08/01/24 11:52 Resp 18 08/01/24 11:52 BP 140/83 08/01/24 11:52 Pulse Ox 100 08/01/24 11:52 O2 Del Method Room Air 08/01/24 11:52 Allergies Allergy/AdvReac Type Severity Reaction Status Date / Time No Known Allergies Allergy Unknown Verified 08/01/24 11:48 Home Medications Medication Instructions Recorded Confirmed Type aspirin 81 mg tablet 81 mg PO EVERY OTHER DAY 02/19/21 08/01/24 History atorvastatin 10 mg tablet 10 mg PO DAILY 02/19/21 08/01/24 History losartan 100 1 tablet PO DAILY 02/19/21 08/01/24 History mg-hydrochlorothiazide 25 mg tablet methylphenidate HCl 5 mg tablet 5 mg PO DAILY PRN Spasms 02/19/21 08/01/24 History (Ritalin) pantoprazole 40 mg tablet,delayed 40 mg PO DAILY 02/19/21 08/01/24 History release torsemide 20 mg tablet 10 mg PO DAILY 11/19/21 08/01/24 History inhalational spacing device #1 ea 06/30/22 08/01/24 Rx tirzepatide 10 mg/0.5 mL 12.5 mg subcut WEEKLY 09/03/23 08/01/24 History subcutaneous pen injector (Mounjaro) budesonide-formoterol HFA 80 See Rx Instructions .Route 04/18/24 08/01/24 Rx mcg-4.5 mcg/actuation aerosol .COMPLEX #30.6 ea inhaler insulin degludec 100 unit/mL (3 20 unit subcut BID 05/02/24 08/01/24 History mL) subcutaneous pen (Tresiba FlexTouch U-100 insulin) ipratropium bromide 21 mcg (0.03 2 spray intranasal TID #90 mL 05/16/24 08/01/24 Rx %) nasal spray montelukast 10 mg tablet 10 mg PO QHS 30 days #30 tabs 06/09/24 08/01/24 Rx Patient hx anesthesia problems: none Family hx anesthesia problems: none Results Review: All pre-operative results and documents have been reviewed as part of the pre-operative evaluation. [facility] Past Medical History Medical History Anxiety Diabetes mellitus GERD (gastroesophageal reflux disease) HTN (hypertension) Vocal cord dysfunction Surgical History Surgical History H/O gastric bypass Social History Social History Smoking status: Never smoker Second hand tobacco smoke exposure: Yes Alcohol intake: never Drinks per week: 0 Substance use: never Substance use type: does not use Living arrangements: with family Spiritual care concerns: No Anes - Eval Final PreProcedure Day of Procedure 08/01/24 12:07 Patient weight: obese Heart: regular rate and rhythm Lungs: clear to auscultation Airway: Mallampati scale class II Neurological: alert and oriented Last oral intake: >/= 8 hours ASA classification: III Emergent: no Anesthetic plan: proceed Anesthesia type and monitoring: general GIVS and standard monitoring Results Review: All pre-operative results and documents have been reviewed as part of the pre-operative evaluation. Informed Consent: The patient's anesthetic plan and its attendant risks and benefits were discussed with the patient/family/POA. Questions were solicited and answers provided to the satisfaction of the patient/family/POA.
[2024-08-01] MEDS: LACTATED RINGERS 1,000 ML 150 ML IV CONT (12:13)
[2024-08-01 12:16] LABS: Glucose Point of Care 92 mg/dl (65-105)
--- NOTE | 2024-08-01 12:23 | PM.HPGS ---
History of Present Illness History of Present Illness Consent: Risks, benefits, and alternatives have been discussed and questions answered. Patient agrees to proceed with procedure. Chief complaint: screening colon Narrative: Pratibha Chaparro is a 69 year old female here for screening colonoscopy, last one 8 years ago Review of Systems Review of Systems: All systems reviewed & are unremarkable except as noted in HPI and below PMFSH Past Medical History Medical History (Updated 08/01/24 @ 12:24 by Markel Solo MD) Anxiety Colon cancer screening Diabetes mellitus GERD (gastroesophageal reflux disease) HTN (hypertension) Vocal cord dysfunction Surgical History Surgical History H/O gastric bypass Social History Social History Smoking status: Never smoker Second hand tobacco smoke exposure: Yes Alcohol intake: never Drinks per week: 0 Substance use: never Substance use type: does not use Living arrangements: with family Spiritual care concerns: No Meds Home Medications and Allergies Home Medications Medication Instructions Recorded Confirmed Type aspirin 81 mg tablet 81 mg PO EVERY OTHER DAY 02/19/21 08/01/24 History atorvastatin 10 mg tablet 10 mg PO DAILY 02/19/21 08/01/24 History losartan 100 1 tablet PO DAILY 02/19/21 08/01/24 History mg-hydrochlorothiazide 25 mg tablet methylphenidate HCl 5 mg tablet 5 mg PO DAILY PRN Spasms 02/19/21 08/01/24 History (Ritalin) pantoprazole 40 mg tablet,delayed 40 mg PO DAILY 02/19/21 08/01/24 History release torsemide 20 mg tablet 10 mg PO DAILY 11/19/21 08/01/24 History inhalational spacing device #1 ea 06/30/22 08/01/24 Rx tirzepatide 10 mg/0.5 mL 12.5 mg subcut WEEKLY 09/03/23 08/01/24 History subcutaneous pen injector (Ally) budesonide-formoterol HFA 80 See Rx Instructions .Route 04/18/24 08/01/24 Rx mcg-4.5 mcg/actuation aerosol .COMPLEX #30.6 ea inhaler insulin degludec 100 unit/mL (3 20 unit subcut BID 05/02/24 08/01/24 History mL) subcutaneous pen (Tresiba FlexTouch U-100 insulin) ipratropium bromide 21 mcg (0.03 2 spray intranasal TID #90 mL 05/16/24 08/01/24 Rx %) nasal spray montelukast 10 mg tablet 10 mg PO QHS 30 days #30 tabs 06/09/24 08/01/24 Rx Allergies Allergy/AdvReac Type Severity Reaction Status Date / Time No Known Allergies Allergy Unknown Verified 08/01/24 11:48 Vital Signs Vital Signs - 24 hr 08/01/24 11:52 Temperature 97.5 F L Pulse Rate 70 Respiratory Rate 18 Blood Pressure 140/83 Pulse Oximetry 100 Oxygen Delivery Room Air Exam Const: General: comfortable and no acute distress HENMT: Face/Nose/Sinus: Normal nares present Eyes: General: appearance normal, both eyes and all related structures Neck: Neck: no JVD Resp: Auscultation: clear to auscultation bilaterally Cardio: Rate: regular rate Rhythm: regular rhythm GI: Inspection: non-distended GI Palp: Yes Soft to palpation Skin: General skin exam: normal color Neuro: General: gait normal Speech: normal speech Extrem: General: normal to inspection Psych: Mental Status: mental status grossly normal Assessment and Plan Assessment and plan (1) Colon cancer screening: Code(s): Z12.11 - Encounter for screening for malignant neoplasm of colon Status: Acute Assessment and Plan: colonoscopy
[2024-08-01 12:45] VITALS: BP 112/61; PULSE 79; RESP 22; O2SAT 98
[2024-08-01 12:55] VITALS: BP 112/61; PULSE 79; RESP 19; O2SAT 98
[2024-08-01 13:05] VITALS: BP 134/73; PULSE 77; RESP 19; O2SAT 100
[2024-08-01 13:23] LABS: Glucose Point of Care 71 mg/dl (65-105)
== END 2024-08-01 13:28 | disposition home or self-care (01) ==
PROVIDERS: PCP Internal Medicine; Visit Provider Internal Medicine Gastroenterology
PROC: 0DJD8ZZ Inspection of Lower Intestinal Tract, Via Natural or Artificial Opening Endoscopic (ICD-10-PCS; CPT 45378; principal; 2024-08-01 13:00)
DX: Z12.11 Encounter for screening for malignant neoplasm of colon (principal); K63.5 Polyp of colon; K64.8 Other hemorrhoids; I10 Essential (primary) hypertension; E11.9 Type 2 diabetes mellitus without complications; K21.9 Gastro-esophageal reflux disease without esophagitis; F41.9 Anxiety disorder, unspecified; J38.3 Other diseases of vocal cords; E66.9 Obesity, unspecified; Z68.37 Body mass index [BMI] 37.0-37.9, adult; Z79.82 Long term (current) use of aspirin; Z79.85 Long-term (current) use of injectable non-insulin antidiabetic drugs; Z79.4 Long term (current) use of insulin; Z79.51 Long term (current) use of inhaled steroids; Z98.890 Other specified postprocedural states; Z98.84 Bariatric surgery status
CPT/HCPCS: 45380; 82948; 88305; J2003; J2704; J7120

== ENCOUNTER 2024-08-17 13:00 | Outpatient (RCR) | payer MEDICARE, SELFPAY ==
--- NOTE | 2024-05-22 17:52 | BUSTOPEVAL1 ---
Assessment and note entered by Jojo Pathak, CHAINER Evaluation Information Assessment Status Evaluation Other ICD-10 Condition Codes ( J38.3 Other disease of vocal cords ST) Subjective Information Patient was referred for an ST evaluation by Dr. Uriel Turk ENT due to continued difficulty with breathing and voice problems over the past year or more. The patient reported that she initially had problems with her breathing after being diagnosed with Blepharospasm in 2011. She has sleep apnea and current used a CPAP. She then began noticing difficulties with her voice after starting the use of an inhaler around a year or so ago. She reported that the experiences increased difficulties with breathing while laying down in bed on her side and has to focus on deep breaths to improve. She also noticed vocal hoarseness that is currently moderately severe when speaking. She reported that there are days where she completely loses her voice and notices it in the morning when she wakes up. Reported Pain Level Pain Score 0: Self Report Assessment ST Clinical Summary Patient was referred for an ST evaluation through her ENT due to ongoing concerns with her breathing and vocal hoarseness. The patient reported that she began experiencing difficulties with her breathing when diagnosed with blepharospasm in 2011. She currently receives Botox injections every three months and takes Ritalin when approaching time for injections again. She received some treatment for her breathing difficulties and was instructed to perform diaphragmatic breathing exercises two times per day. She began experiencing vocal hoarseness around a year ago when she began using an inhaler. She reported that she will have days where she wakes in the morning and has lost her voice completely. Sometimes drinking water or coffee will help in getting her voice back but not always . She had a scope done in the past with ENT and there was no reported polyps or vocal nodules at the time. Throughout the assessment the patient presented with shortness of breath and periods of difficulty breathing while speaking in conversation. The patient performed sustained /s/ and /z/ tasks for 11-12 seconds with intermittent loss of sound during sustained vocalization. Sustained ah was performed for 17 second with
--- NOTE | 2024-06-05 14:34 | PCSTNOTE ---
Patient called & cancelled scheduled appointment this date due to illness.
--- NOTE | 2024-08-03 13:48 | PCSTNOTE ---
Patient called & cancelled scheduled appointment this date
--- NOTE | 2024-08-10 13:11 | PCSTNOTE ---
Patient called & cancelled scheduled appointment this date due to conflicting appointments.
--- NOTE | 2024-08-17 16:51 | BUSTOPDC ---
Assessment and note entered by HERBER Kerr Evaluation Information Assessment Status Discharge Diagnosis J38.3 Other disease of vocal cords Other ICD-10 Condition Codes ( J38.3 Other disease of vocal cords ST) Subjective Information Patient was referred for an ST evaluation by Dr. Uriel Turk ENT due to continued difficulty with breathing and voice problems over the past year or more. The patient reported that she initially had problems with her breathing after being diagnosed with Blepharospasm in 2011. She has sleep apnea and current used a CPAP. She then began noticing difficulties with her voice after starting the use of an inhaler around a year or so ago. She reported that the experiences increased difficulties with breathing while laying down in bed on her side and has to focus on deep breaths to improve. During the initial evaluation the patient noticed vocal hoarseness that was moderately severe when speaking. She reported that there are days where she completely loses her voice and notices it in the morning when she wakes up. Upon discharge the patient reported that she has noticed a significant improvement in her overall voice quality over the course of 7 skilled treatment sessions. The patient currently reports that her overall voice quality is good with minimal to no loss of voice. She does continue to experience some periods of breathing difficulty while sleeping but it is much less often. Reported Pain Level Pain Score 0: Self Report Pain Score 5: Self Report Pain Score 0: Self Report Pain Score 0: Self Report Pain Score 0: Self Report Pain Score 0: Self Report Pain Score 0: Self Report Assessment ST Clinical Summary Patient was referred for an ST evaluation through her ENT due to ongoing concerns with her breathing and vocal hoarseness. The patient reported that she began experiencing difficulties with her breathing when diagnosed with blepharospasm in 2011. She currently receives Botox injections every three months and takes Ritalin when approaching time for injections again. She received some treatment for her breathing difficulties and was instructed to perform diaphragmatic breathing exercises two times per
== END 2024-08-17 14:06 | disposition home or self-care (01) ==
LOC: CHSST 13:00
PROVIDERS: Visit Provider Otolaryngology
DX: J38.3 Other diseases of vocal cords (principal)
CPT/HCPCS: 92507; 92524

== ENCOUNTER 2024-12-21 08:34 | Outpatient (CLI) | payer MEDICARE, SELFPAY | END 2024-12-21 08:35 | disposition home or self-care (01) | LOC: ANHNEURO 08:35 | PROVIDERS: PCP Internal Medicine; Visit Provider Internal Medicine | DX: G56.03 Carpal tunnel syndrome, bilateral upper limbs (principal) | CPT/HCPCS: 95886; 95911 ==

== ENCOUNTER 2025-05-29 09:30 | Outpatient (CLI) | payer MEDICARE, SELFPAY ==
--- OUTSIDE RECORDS SUMMARY | 2025-05-29 09:53 | XMS_ITS ---
Author Organization [facility] Address [address] [place], [place] [phone] Care Team Providers Care Timber Appraiser Name Role Phone LUIS CEBALLOS Unavailable [phone] Wily Tiago Unavailable Unavailable SRIKANTH GARCIA Unavailable [phone] REASON FOR VISIT *General care Social History Tobacco Use: Social History Observation Description Date Details (start date - stop date) Never Smoker NA - NA Tobacco Use/Smoking Question Answer Notes Tobacco use: nonsmoker Vital Signs Height 67 in 03/15/2025 Weight 272 lbs 03/15/2025 BMI 42.6 kg/m2 03/15/2025 Height-cm 170.18 cm 03/15/2025 Weight-kg 123.38 kg 03/15/2025 Encounters Encounter Location Date Provider Diagnosis [address] [id number] 03/15/2025 SRIKANTH GARCIA Tinea unguium B35.1 ; Pain in right toe(s) M79.674 ; Pain in left toe(s) M79.675 ; Atherosclerosis of [place] arteries of extremities with intermittent claudication, bilateral [...] toe(s) (ICD-10 - M79.675) 03/15/2025 Atherosclerosis of [place] arteries of extremities with intermittent claudication, bilateral [...] debris and necrotic tissue removed Atherosclerosis of [place] ar teries of extremities with intermittent claudication, [...] Provider Name:SRIKANTH PEREZ, 07/19/2025 09:50:00 AM, [address] [place] [address], [id number], Progress Notes * LISANDRO MACKDOB:1955 (70 yo F)Acc No.[id number]:03/15/2025 Patient: LISANDRO VELAZQUEZ Provider: Marylou GARCIA :1955 A ge:69 Y S ex:Female Date:03/15/2025 Address:[address] [place], [place] [id number] Subjective: * Chief Complaints: * 1 . [...] seen by Dr. Julien was 11/2024., Initials [facility]. * ROS: G eneral / Constitutional: Patient [...] - M79.675 4 . A therosclerosis of [place] arteries of extremities with intermittent claudication, bilateral legs - I70.213 5 . T ype 2 diabetes mellitus with other circulatory complications - E11.59 Plan: * Treatment: 2. A therosclerosis of [place] arteries of extremities with intermittent claudication, bilateral [...] develop.) * Billing Information: * Visit Code: 46447 Office Visit, Est Pt., Level 3. * Procedure Codes: * Electronic signature of VALERIE GARCIA DPM on 05/29/2025 at 09:53 AM CDT Sign off status: Pending * Provider: Marylou GARCIA Date: 0 03/15/2025 Generated for Minh godoy/Nicholas/Dick on: 0 05/29/2025 09:53 AM CDT History and Physical Notes * [...]
--- OUTSIDE RECORDS SUMMARY | 2025-05-29 09:53 | XMS_ITS | Referral Summary ---
Author Organization [facility] [address] Address [address] [place] [address] Care Team Providers Care Community Development Coordinator Name Role Phone Tiago Julien MD Primary Care Provider [phone] Encounters Date Type Department Care Team Description 04/10/2025 Orders Only [facility] Ophthalmology [address], [address] [place] [phone] Aubrey Wells MD 04/10/2025 1:15 PM CDT Procedure visit [facility] Ophthalmology [address], [address] [place] [phone] Aubrey Wells MD Blepharospasm (Primary Dx) from Last 3 Months Allergies No known active allergies Medications pantoprazole DR (PROTONIX) 40 mg EC tablet Take 1 tablet (40 mg total) by mouth nightly Active aspirin 81 mg tablet Take 1 tablet (81 mg total) by mouth daily Active atorvastatin (LIPITOR) 10 mg tabletIndications: Lipid screening,Mixed hyperlipidemia Take 1 tablet (10 mg total) by mouth daily. 90 tablet 3 01/18/20 18 Active ULTICARE PEN NEEDLE 31 gauge x 16 needle 04/26/20 18 Active ONETOUCH DELICA LANCETS 33 gauge misc 03/02/20 18 Active ONETOUCH VERIO strip 04/09/20 18 Active LEVEMIR 100 unit/mL (3 mL) pen for injection Inject 10 Units under the skin 2 (two) times a day 8 a.m. & 8 p.m. 09/09/20 21 Active Mounjaro 12.5 mg/0.5 mL pen injector INJECT 12.5 MG BY SUBCUTANEOUS ROUTE ONCE WEEKLY 12/13/19 24 Active montelukast (SINGULAIR) 10 mg tablet Take 1 tablet (10 mg total) by mouth nightly at bedtime. 12/01/19 25 Active losartan potassium (LOSARTAN ORAL) Take by mouth Active methylphenidate HCl (Ritalin) 5 mg tablet Take 1 tablet (5 mg total) by mouth 2 (two) times a day 60 tablet 04/10/20 25 Active Active Problems Problem Noted Date Diagnosed Date Morbid (severe) obesity due to excess calories 0 12/28/2022 Body mass index 40.0-44.9, adult ([facility]) 12/28 Mixed hyperlipidemia 11/29/2017 Assessment & Plan (11/29/2017 12:32 PM GRADUATE RESEARCH ASSISTANT): Will start her on Lipitor given the fact that she is diabetic and LDL slightly elevated. Lipid screening 11/29/2017 Hernia of anterior abdominal wall 03/10/2014 Overview (01/29/2017): VENTRAL HERNIA NOS Sleep apnea 01/26/2014 Overview (01/28/2017): Sleep apnea Diabetes mellitus 01/26/2014 Overview (01/29/2017): Diabetes Gastroesophageal reflux disease 01/26/2014 Overview (01/29/2017): GERD (gastroesophageal reflux disease) Hypertension 05/31/2012 Assessment & Plan (11/29/2017 12:10 PM GRADUATE RESEARCH ASSISTANT): Will controlled now. Blood pressure was elevated when she was on Ritalin for blepharospasm. Ritalin was discontinued during hospitalization. Social History Tobacco Use Types Packs/Day Years Used Date Smoking Tobacco: Never Smokeless Tobacco: Never Alcohol Use Standard Drinks/Week Comments No 0 (1 standard drink = 0.6 oz pur e alcohol) AUDIT-C Answer Date Recorded Q1: How often do you have a drink containing alc ohol? Monthly or less 11/24/2021 Q2: How many drinks containi ng alcohol do you have on a typical day when you are drinking? 1 or 2 11/24/2021 Q3: How often do you have si x or more drinks on one occasion? Never 11/24/2021 Comments Unknown Sex and Gender Information Value Date Recorded Sex Assigned at Not on file Legal Sex Female 12:26 AM GRADUATE RESEARCH ASSISTANT Gender Identity Female 07/13/2021 7:45 PM CDT Sexual Orientation Straight 07/13/2021 7: 45 PM CDT Last Filed Vital Signs Vital Sign Reading Time Taken Comments Blood Pressure 118/62 01/08/2025 8:45 AM CDT Pulse 62 01/08/2025 8:45 AM CDT Temperature 36.8 C (98.2 F) 11/24/2021 10:32 AM GRADUATE RESEARCH ASSISTANT Respiratory Rate 18 11/24/2021 10:32 AM GRADUATE RESEARCH ASSISTANT Oxygen Saturation 98% 01/08/2025 8:45 AM CDT Inhaled Oxygen Concentration - - Weight 107 kg (236 lb) 01/08/2025 8:45 AM CDT Height 172.7 cm (5' 8) 01/08/2025 8:45 AM CDT Body Mass Index 35.88 01/08/2025 8:45 AM CDT Plan of Treatment Not on file Medical Devices Implanted Type Area Riding Teacher Device Identifier Shelf Expiration Date Model / Serial / Lot [employer] [id number] Device Closure Angio-Seal Vip Bondek-Plus Polyglyd L70 Cm Od6 Fr Odsec.035 In Vascular - [id number] Implanted:Qty: 1 on 11/24/2021 by Brittany Valera MD at [facility] [id number] / / Procedures Procedure Name Priority Date/Time Associated Diagnosis Comments FUNCTIONAL INJECTION, BOTULINUMTOXIN - FACIAL NERVE - OU - BOTH EYES Routine 04/10/2025 1:41 PM CDT Blepharospasm POCT LIPID PANEL Routine 01/08/2025 8:39 AM CDT Mixed hyperlipidemia from Last 3 Months or Most Recently Relevant to Health Maintenance Results * Functional Injection, Botulinumtoxin - Facial Nerve - OU - Both Eyes (04/10/2025 1:41 PM CDT) Anatomical Region Laterality Modality Head Other Narrative 04/10/2025 1:41 PM CDT Injection, Botulinumtoxin The injection site was prepped with a alcohol prep pad. Bacteriostatic saline at 5 units per 0.1ml. Post-op there were no complications during today's treatment. us Aubrey Wells MD OPHTH CLINIC PROCEDURES Final Result * POCT lipid panel (01/08/2025 8:39 AM CDT) HDL, POC 42 mg/dL Triglycerides, POC 76 mg/dL LDL Cholesterol POC 48.1 mg/dL Chol/HDL Ratio, POC N/A Non-HDL Cholesterol, POC N/A mg/dL Cholesterol Total, POC <100 mg/dL Capillary blood 01/08/2025 8 :39 AM CDT us Brittany Valera MD POINT OF CARE TEST O RDERABLES Final Result from Last 3 Months or Most Recently Relevant to Health Maintenance Insurance T MEDICARE AETNA MEDICARE AETNA MEDICARE Care Teams Community Development Coordinator Relationship Specialty Start Date End Date Tiago Julien MD PCP - General 02/20/08
--- OUTSIDE RECORDS SUMMARY | 2025-05-29 09:53 | XMS_ITS | Clinical Summary ---
Author Organization [facility] Address [address] [place] [address] Care Team Providers Care Finishing Department Supervisor Name Role Phone Unavailable Primary Care Provider Unavailabl e Social History Tobacco Use Types Packs/Day Years Used Date Smoking Tobacco: Never Assessed Comments Unknown Sex and Gender Information Value Date Recorded Sex Assigned at Not on file Legal Sex Female 9:14 PM PRODUCTION INTERN Gender Identity Not on file Sexual Orientation Not on file Plan of Treatment Health Maintenance Due Date Last Done Comments Colorectal Cancer Screening Colonoscopy (10 Years) 1956 Hepatitis C 1974 DTaP, Tdap and Td Vaccines ( 1 - Tdap) 1975 Mammogram Screening 1996 Pneumococcal Vaccine: 50+ Ye ars (1 of 1 - PCV) 2006 Zoster Vaccines (1 of 2) 2006 Dexa Scan (General) 2021 COVID-19 Vaccine ( - 2023-2 5 season) 2024 RSV Immunization or 60+ Years (1 - 1-dose 75+ series) 2031 Meningococcal B Vaccine Aged Out No l onger eligible based on patient's age to complete this topic Meningococcal Vaccine Aged Out No ashley avi eligible based on patient's age to complete this topic RSV Immunizations Under 20 Months Aged Out No longer eligible based on patient's age to complete this topic
--- OUTSIDE RECORDS SUMMARY | 2025-05-29 09:53 | XMS_ITS ---
Author Organization [facility] Address [address] [place], [place] [phone] Care Team Providers Care Insurance Investigator Name Role Phone LUIS CEBALLOS Unavailable [phone] Tiago Julien Unavailable Unavailable REASON FOR VISIT [...] nonsmoker Encounters Encounter Location Date Provider Diagnosis [address] [id number] 01/11/2025 LUIS CEBALLOS Tinea unguium B35.1 ; Pain in right toe(s) M79.674 ; Pain in left toe(s) M79.675 ; Atherosclerosis of [place] arteries of extremities with intermittent claudication, bilateral [...] toe(s) (ICD-10 - M79.675) 01/11/2025 Atherosclerosis of [place] arteries of extremities with intermittent claudication, bilateral [...] develop. Provider Name:SRIKANTH PEREZ, 07/19/2025 09:50:00 AM, [address] [place] [address], [id number], Progress Notes * FRANCOIS MACKOLAYINKADOB:1955 (70 yo F)Acc No.[id number]:01/11/2025 Patient: LISANDRO VELAZQUEZ Provider: Cristina Ceballos DPM :1955 A ge:69 Y S ex:Female Date:01/11/2025 Address:[address] [place], [place] [phone] Subjective: * Chief Complaints: * 1 . [...] seen by Dr. Julien was 10/2024., Initials [facility]. * ROS: G eneral / Constitutional: Patient [...] - M79.675 4 . A therosclerosis of [place] arteries of extremities with intermittent claudication, bilateral [...] develop.) * Billing Information: * Visit Code: 40770 Office Visit, Est Pt., Level 3. * Procedure Codes: * Electronic signature of LUIS CEBALLOS DPM on 05/29/2025 at 09:53 AM CDT Sign off status: Pending * Provider: Cristina Ceballos DPM Date: 0 01/11/2025 Generated for Minh godoy/Nicholas/Dick on: 0 05/29/2025 [...]
--- OUTSIDE RECORDS SUMMARY | 2025-05-29 09:53 | XMS_ITS | Patient Health Record ---
Author Organization [facility] Address [address] [place], [place] [id number] Care Team Providers Care Carpet Cleaner Name Role Phone LUIS CEBALLOS Unavailable [phone] Wily Tiago Unavailable Unavailable SID HANKINS Unavailable [phone] SRIKANTH GARCIA Unavailable [phone] Allergies No Known Allergies Reason For Referral No Information Social History Tobacco Use: Social History Observation Description Date Details (start date - stop date) Never Smoker NA - NA Tobacco Use/Smoking Question Answer Notes Tobacco use: nonsmoker Vital Signs Height-cm 170.18 cm 05/17/2025 Weight-kg 123.38 kg 05/17/2025 Height 67 in 05/17/2025 Weight 272 lbs 05/17/2025 BMI 42.6 kg/m2 05/17/2025 Encounters Encounter Location Date Provider Diagnosis [facility] [address] [place], [place] [id number] 11/09/2024 LUIS SNOOK Tinea unguium B35.1 ; Pain in right toe(s) M79.674 ; Pain in left toe(s) M79.675 ; Atherosclerosis of tribe arteries of extremities with intermittent claudication, bilateral legs I70.213 and Type 2 diabetes mellitus with other circulatory complications E11.[address] [id number] 01/11/2025 LUIS SNOOK Tinea unguium B35.1 ; Pain in right toe(s) M79.674 ; Pain in left toe(s) M79.675 ; Atherosclerosis of tribe arteries of extremities with intermittent claudication, bilateral legs I70.213 and Type 2 diabetes mellitus with other circulatory complications E11.[address] [id number] 03/15/2025 SRIKANTH GARCIA Tinea unguium B35.1 ; Pain in right toe(s) M79.674 ; Pain in left toe(s) M79.675 ; Atherosclerosis of tribe arteries of extremities with intermittent claudication, bilateral legs I70.213 and Type 2 diabetes mellitus with other circulatory complications E11.[address] [id number] 05/17/2025 SRIKANTH GARCIA Tinea unguium B35.1 ; Pain in right toe(s) M79.674 ; Pain in left toe(s) M79.675 ; Atherosclerosis of tribe arteries of extremities with intermittent claudication, bilateral legs I70.213 ; Type 2 diabetes mellitus with other circulatory complications E11.59 and Acquired keratosis [keratoderma] palmaris et plantaris L85.[address] [id number] 07/06/2024 SID HANKINS Unspecified atherosclerosis of tribe arteries of extremities, bilateral legs I70.203 ; Tinea unguium B35.1 ; Other hammer toe(s) (acquired), right foot M20.41 ; Other hammer toe(s) (acquired), left foot M20.42 ; Pain in right toe(s) M79.674 and Pain in left toe(s) M79.[address] [id number] 09/07/2024 SID HANKINS Unspecified atherosclerosis of tribe arteries of extremities, bilateral legs I70.203 ; Tinea unguium B35.1 ; Other hammer toe(s) (acquired), right foot M20.41 ; Other hammer toe(s) (acquired), left foot M20.42 ; Pain in right toe(s) M79.674 and Pain in left toe(s) M79.675 Assessments Encounter Date Diagnosis (ICD Code) Assessment Notes Treatment Notes Treatment Clinical Notes Section Notes 07/06/2024 Tinea unguium (ICD-10 - B35.1) Aseptic debridement of elongated thickened nails x 10 using sterile nippers, nails were debrided in length and thickness by 30% utilizing a nail nipper without incident. The patient was educated regarding all treatment options that include topical and oral antifungal treatments. I discussed the options of taking a sample of the nail to confirm diagnosis. Nail clippings were not sent for pathology analysis. The patient was educated why and how the fungal infection evolved in their feet and the patient was given information regarding how to prevent further infection. The patient was told to keep feet dry and change socks. The patient was told to be careful with old shoes and excessive sweating. The patient was educated regarding both OTC and prescription treatments. 07/06/2024 Unspecified atherosclerosis of tribe arteries of extremities, bilateral legs (ICD-10 - I70.203) Patient educated on risks and aggravating factors of PVD, including conservative treatment options such as a diet and exercise regimen to aid in slowing progression of vascular disease 09/07/2024 Tinea unguium (ICD-10 - B35.1) Aseptic debridement of elongated thickened nails x 10 using sterile nippers, nails were debrided in length and thickness by 30% utilizing a nail nipper without incident. The patient was educated regarding all treatment options that include topical and oral antifungal treatments. I discussed the options of taking a sample of the nail to confirm diagnosis. Nail clippings were not sent for pathology analysis. The patient was educated why and how the fungal infection evolved in their feet and the patient was given information regarding how to prevent further infection. The patient was told to keep feet dry and change socks. The patient was told to be careful with old shoes and excessive sweating. The patient was educated regarding both OTC and prescription treatments. 09/07/2024 Unspecified atherosclerosis of tribe arteries of extremities, bilateral legs (ICD-10 - I70.203) Patient educated on risks and aggravating factors of PVD, including conservative treatment options such as a diet and exercise regimen to aid in slowing progression of vascular disease 11/09/2024 Tinea unguium (ICD-10 - B35.1) NAIL DEBRIDEMENT: Nails 1-5 Bilateral were debrided extensively with nail nippers and emery board, reducing length and girth to pink healthy tissue with any subungual debris and necrotic tissue removed 01/11/2025 Tinea unguium (ICD-10 - B35.1) NAIL DEBRIDEMENT: Nails 1-5 Bilateral were debrided extensively with nail nippers and emery board, reducing length and girth to pink healthy tissue with any subungual debris and necrotic tissue removed 03/15/2025 Tinea unguium (ICD-10 - B35.1) NAIL DEBRIDEMENT: Nails 1-5 Bilateral were debrided extensively with nail nippers and emery board, reducing length and girth to pink healthy tissue with any subungual debris and necrotic tissue removed 05/17/2025 Tinea unguium (ICD-10 - B35.1) NAIL DEBRIDEMENT: Nails 1-5 Bilateral were debrided extensively with nail nippers and emery board, reducing length and girth to pink healthy tissue with any subungual debris and necrotic tissue removed 05/17/2025 Pain in right toe(s) (ICD-10 - M79.674) 05/17/2025 Pain in left toe(s) (ICD-10 - M79.675) 03/15/2025 Pain in right toe(s) (ICD-10 - M79.674) 01/11/2025 Pain in right toe(s) (ICD-10 - M79.674) 11/09/2024 Pain in right toe(s) (ICD-10 - M79.674) 09/07/2024 Other hammer toe(s) (acquired), right foot (ICD-10 - M20.41) The patient was educated regarding how to mechanically stabilize their deformity. The patient was given education about shoe recommendations specific for the condition. The patient was educated about custom orthotics and how appropriate shoes and orthotics can prevent further worsening of the deformity. The patient was educated about how bad shoe habits can worsen the condition. NSAIDS, P.T., injections and other conservative treatments were discussed. Both surgical and non surgical treatments were discussed, but conservative options were emphasized. 07/06/2024 Other hammer toe(s) (acquired), right foot (ICD-10 - M20.41) The patient was educated regarding how to mechanically stabilize their deformity. The patient was given education about shoe recommendations specific for the condition. The patient was educated about custom orthotics and how appropriate shoes and orthotics can prevent further worsening of the deformity. The patient was educated about how bad shoe habits can worsen the condition. NSAIDS, P.T., injections and other conservative treatments were discussed. Both surgical and non surgical treatments were discussed, but conservative options were emphasized. 07/06/2024 Other hammer toe(s) (acquired), left foot (ICD-10 - M20.42) 09/07/2024 Other hammer toe(s) (acquired), left foot (ICD-10 - M20.42) 11/09/2024 Pain in left toe(s) (ICD-10 - M79.675) 01/11/2025 Pain in left toe(s) (ICD-10 - M79.675) 03/15/2025 Pain in left toe(s) (ICD-10 - M79.675) 05/17/2025 Atherosclerosis of tribe arteries of extremities with intermittent claudication, bilateral legs (ICD-10 - I70.213) Check and protect LE bilateral daily. Call if any changes or concerns. 05/17/2025 Type 2 diabetes mellitus with other circulatory complications (ICD-10 - E11.59) Diabetic Foot Care: The patient was educated on diabetes and the lower extremity. The patient was instructed to check his feet daily to report any problems or signs of infection immediately. 03/15/2025 Atherosclerosis of tribe arteries of extremities with intermittent claudication, bilateral legs (ICD-10 - I70.213) Check and protect LE bilateral daily. Call if any changes or concerns. 11/09/2024 Atherosclerosis of tribe arteries of extremities with intermittent claudication, bilateral legs (ICD-10 - I70.213) 01/11/2025 Atherosclerosis of tribe arteries of extremities with intermittent claudication, bilateral legs (ICD-10 - I70.213) 09/07/2024 Pain in right toe(s) (ICD-10 - M79.674) 07/06/2024 Pain in right toe(s) (ICD-10 - M79.674) 07/06/2024 Pain in left toe(s) (ICD-10 - M79.675) 09/07/2024 Pain in left toe(s) (ICD-10 - M79.675) 11/09/2024 Type 2 diabetes mellitus with other circulatory complications (ICD-10 - E11.59) Diabetic Foot Care: The patient was educated on diabetes and the lower extremity. The patient was instructed to check his feet daily to report any problems or signs of infection immediately. The patient was provided written information on Diabetic Foot Care as well as the Amputation Prevention Guide. 01/11/2025 Type 2 diabetes mellitus with other circulatory complications (ICD-10 - E11.59) Diabetic Foot Care: The patient was educated on diabetes and the lower extremity. The patient was instructed to check his feet daily to report any problems or signs of infection immediately. The patient was provided written information on Diabetic Foot Care as well as the Amputation Prevention Guide. 03/15/2025 Type 2 diabetes mellitus with other circulatory complications (ICD-10 - E11.59) Diabetic Foot Care: The patient was educated on diabetes and the lower extremity. The patient was instructed to check his feet daily to report any problems or signs of infection immediately. 05/17/2025 Acquired keratosis [keratoderma] palmaris et plantaris (ICD-10 - L85.1) Hyperkeratosis x 2 4th digit distal tuft: The skin was prepped with isopropyl alcohol. Using a 15-blade scalpel, the hyperkeratotic skin lesions were sharply debrided down to healthy appearing skin. Plan Of Treatment Next Appt Details Provider Name:SRIAKNTH PEREZ, 07/19/2025 09:50:00 AM, [address] [place] [address], [id number], Insurance Providers Payer Name Payer Address Payer Phone Subscriber Number Group Number Insured Name Patient Relationship to Insured Coverage Start Date Coverage End Date [employer] [address] [place] [phone] [id number] LISANDRO MACK Self - patient is the insured Medical (General) History Medical History History ICD Code acid reflux arthritis Sleep apnea Back Trouble Diabetic hypertension
--- OUTSIDE RECORDS SUMMARY | 2025-05-29 09:53 | XMS_ITS | Clinical Summary ---
Author Organization [facility] [address] Address [address] [place] [address] Care Team Providers Care Digital Media Intern Name Role Phone Tiago Julien MD Primary Care Provider [phone] Allergies No known active allergies Medications pantoprazole [...] Active ULTICARE PEN NEEDLE 31 gauge x /16 needle 04/26/20 18 Active ONETOUCH DELICA LANCETS [...] 0 12/28/2022 Body mass index 40.0-44.9, adult ([facility]) 12/28 Mixed hyperlipidemia 11/29/2017 Assessment & Plan (11/29/2017 12:32 PM PATHOLOGY SECRETARY): Will start her on Lipitor given the fact that she is diabetic and LDL slightly elevated. Lipid screening 11/29/2017 Hernia of anterior abdominal wall 03/10/2014 Overview (01/29/2017): VENTRAL HERNIA NOS Sleep apnea 01/26/2014 Overview (01/28/2017): Sleep apnea Diabetes mellitus 01/26/2014 Overview (01/29/2017): Diabetes Gastroesophageal reflux disease 01/26/2014 Overview (01/29/2017): GERD (gastroesophageal reflux disease) Hypertension 05/31/2012 Assessment & Plan (11/29/2017 12:10 PM PATHOLOGY SECRETARY): Will controlled now. Blood pressure was elevated when she was on Ritalin for blepharospasm. Ritalin was discontinued during hospitalization. Encounters Date Type Department Care Team Description 04/10/2025 1:15 PM CDT Procedure visit [facility] Ophthalmology [address], [address] [place] [address] Aubrey Wells MD Blepharospasm (Primary Dx) 04/10/2025 Orders Only [facility]hthalmology [address], [address] [place] [address] Aubrey Wells MD from Last 3 Months Surgical History Surgery Date Site/Laterality Comments OTHER SURGICAL HISTORY Gastric stapling OTHER SURGICAL HISTORY Thoracotomy for empyema OTHER SURGICAL HISTORY 10/25/2007 - 10/24/2008 Ventral hernia repair w/ mesh 07/02 HERNIA REPAIR Herniorrhaphy HYSTERECTOMY Hysterectomy HYSTERECTOMY Hysterectomy HERNIA REPAIR Hernia Repair OTHER SURGICAL HISTORY Removal of Lung Abscess TONSILLECTOMY Tonsillectomy TOE SURGERY Toe Surgery GASTRIC BYPASS High Gastric Bypass - (Added by TW Conv) LASIK 10/25/2007 - 10/24/2008 Bilateral EYE SURGERY BLEPHAROPTOSIS REPAIR 10/25/2009 - 10/24/2010 Bilateral Blepharoplasty Medical History Medical History Date Comments Hypertension Hypertension Diabetes mellitus (HCC) Hyperlipidemia Sleep apnea SOB (shortness of breath) Chest pain GERD (gastroesophageal reflux disease) Blepharospasm of both eyes Botox treatments every 90 days Family History Medical History Relation Name Comments Heart failure Father Family history of congestive heart failure - (Added by TW Conv) Stroke Father Family history of cerebrovascular accident (CVA) - (Added by TW Conv) Cancer Maternal Grandmother Family history of malignant neoplasm - (Added by TW Conv) Cancer Mother renal w/mets to femur and skull bone; Cataracts Mother Dementia Mother Family history of dementia - (Added by TW Conv) Glaucoma Mother Colon cancer Other 1 Family history of Cancer, colon; Diabetes Other 2 Family history of Diabetes mellitus; Heart disease Other 3 Family history of Heart disease; Hypertension Other 4 Family history of Hypertension; Cancer Paternal Grandmother Family history of malignant neoplasm - (Added by TW Conv) Amblyopia Neg Hx Blindness Neg Hx Retinal detachment Neg Hx Strabismus Neg Hx Relation Name Status Comments Father (Age 68) Maternal Grandmother Mother Alive Other 1 Other 2 Other 3 Other 4 Paternal Grandmother Social History Tobacco Use Types Packs/Day Years [...] on file Legal Sex Female 12:26 AM PATHOLOGY SECRETARY Gender Identity Female 07/13/2021 7:45 PM CDT Sexual Orientation Straight 07/13/2021 7: 45 PM CDT Obstetrics History Last Filed Vital Signs Vital Sign Reading Time Taken Comments Blood Pressure 118/62 01/08/2025 8:45 AM CDT Pulse 62 01/08/2025 8:45 AM CDT Temperature 36.8 C (98.2 F) 11/24/2021 10:32 AM PATHOLOGY SECRETARY Respiratory Rate 18 11/24/2021 10:32 AM PATHOLOGY SECRETARY Oxygen Saturation 98% 01/08/2025 8:45 AM CDT Inhaled Oxygen Concentration - - Weight 107 kg (236 lb) 01/08/2025 8:45 AM CDT Height 172.7 cm (5' 8) 01/08/2025 8:45 AM CDT Body Mass Index 35.88 01/08/2025 8:45 AM CDT Plan of Treatment Health Maintenance Due Date Last Done Comments Albumin Creatinine Ratio, Urine 1955 Breast Cancer Screening-Mammogram 1955 Colon Cancer Screening-Colonoscopy 1955 Depression Screening 1955 Hemoglobin A1C 1955 Hepatitis C Screening 1955 Osteoporosis Screening-Bone Density Scan 1955 eGFR 1955 Foot Exam 1955 Hepatitis B Screening 1974 Zoster Vaccine (1 of 2) 2006 Pneumococcal vaccine 65+ (2 of 2 - PCV) 10/05/2014 10/05/2013 Well Visit 65+ 2021 Dilated Eye Exam 11/04/2022 11/04/2021, 08/2022, 10/01/2020, Additional history exists Fall Risk Assessment 11/24/2022 11/24/2021 DTaP/Tdap/Td Vaccine (2 - Td or Tdap) 02/06/2025 02/06/2015 Influenza Vaccine (#1) 2025 9, 08/08/2018, 07/10/2016, Additional history exists Lipid Panel 01/08/2026 01/08/2025, 12/23, 12/28/2022, Additional history exists Medical Devices Implanted Type Area Ropeman Device Identifier Shelf Expiration Date Model / Serial / Lot NPS Marcial [id number] Device Closure Angio-Seal Vip Bondek-Plus Polyglyd L70 Cm Od6 Fr Odsec.035 In Vascular - [id number] Implanted:Qty: 1 on 11/24/2021 by Brittany Valera MD at [facility] [id number] / / Procedures Procedure Name Priority Date/Time [...] Capillary blood 01/08/2025 8 :39 AM CDT Brittany Valera MD POINT OF CARE TEST O RDERABLES Final Result from Last 3 Months or Most Recently Relevant to Health Maintenance Insurance [employer] MEDICARE [facility] MEDICARE FOR[facility] MEDICARE Care Teams Digital Media Intern Relationship Specialty Start Date End Date Tiago Julien MD [facility] - General 02/20/08
--- OUTSIDE RECORDS SUMMARY | 2025-05-29 09:53 | XMS_ITS ---
Author Organization [facility] Address [address] [place], [place] [address] Care Team Providers Care Pond Worker Name Role Phone LUIS CEBALLOS Unavailable [phone] Tiago Julien Unavailable Unavailable SRIKANTH GARCIA Unavailable [phone] Allergies No Known Allergies REASON FOR VISIT *General care Vital Signs Height 67 in 05/17/2025 Weight 272 lbs 05/17/2025 BMI 42.6 kg/m2 05/17/2025 Height-cm 170.18 cm 05/17/2025 Weight-kg 123.38 kg 05/17/2025 Encounters Encounter Location Date Provider Diagnosis [address] [id number] 05/17/2025 SRIKANTH GARCIA Tinea unguium B35.1 ; Pain in right toe(s) M79.674 ; Pain in left toe(s) M79.675 ; Atherosclerosis of tangirnaq arteries of extremities with intermittent claudication, bilateral legs I70.213 ; Type 2 diabetes mellitus with other circulatory complications E11.59 and Acquired keratosis [keratoderma] palmaris et plantaris L85.1 Assessments Encounter Date Diagnosis (ICD Code) Assessment Notes Treatment Notes Treatment Clinical Notes Section Notes 05/17/2025 Tinea unguium (ICD-10 - B35.1) NAIL DEBRIDEMENT: Nails 1-5 Bilateral were debrided extensively with nail nippers and emery board, reducing length and girth to pink healthy tissue with any subungual debris and necrotic tissue removed 05/17/2025 Pain in right toe(s) (ICD-10 - M79.674) 05/17/2025 Pain in left toe(s) (ICD-10 - M79.675) 05/17/2025 Atherosclerosis of tangirnaq arteries of extremities with intermittent claudication, bilateral [...] to healthy appearing skin. Plan Of Treatment Treatment Notes Assessment Notes Tinea unguium NAIL DEBRIDEMENT: Na ils 1-5 Bilateral were debrided extensively with nail nippers and emery board, reducing length and girth to pink healthy tissue with any subungual debris and necrotic tissue removed Atherosclerosis of tangirnaq ar teries of extremities with intermittent claudication, bilateral legs Check and protect LE bilateral daily. Ca ll if any changes or concerns. Type 2 diabetes mellitus wit h other circulatory complications Diabetic Foot Care: The patient was educated on diabetes and the lower extremity. The patient was instructed to check his feet daily to report any problems or signs of infection immediately. Acquired keratosis [keratode rma] palmaris et plantaris Hyperkeratosis x 2 4th digit distal tuft: The skin was prepped with isopropyl alcohol. Using a 15-blade scalpel, the hyperkeratotic skin lesions were sharply debrided down to healthy appearing skin. Next Appt Details Follow Up: 10 - 12 weeks, Re ason: At-Risk Foot care, sooner if problems develop. Provider Name:SRIKANTH PEREZ, 07/19/2025 09:50:00 AM, [address] [place] [address], [phone], Progress Notes * SVETLANA MACKB:1955 (70 yo F)Acc No.[id number]:05/17/2025 Patient: LISANDRO VELAZQUEZ Provider: Marylou GARCIA :1955 A ge:70 Y S ex:Female Date:05/17/2025 Address:[address] [place], [place] [id number] Subjective: * Chief Complaints: * 1 . [...] seen by Dr. Julien was 11/2024., Initials nd. * ROS: G eneral / Constitutional: Patient [...] Sleep apnea, Back Trouble, Diabetic, Hypertension. * Surgical History: D enies Past Surgical History. * Hospitalization/Major Diagno stic Procedure: D enies Past Hospitalization. * Family History: F ather: , stroke, arthritis, congenital heart disease. M other: , stroke, arthritis, cancer. * Medications: N one * Allergies: N .K.D.A. Objective: * Vitals: S hoe Size: 12, [...] subungual debris. They are painful to palpation. Hyperkeratotic Skin Lesion T here is evidence of hyperkeratotic skin lesions present on the, distal aspect of the 4th digit, bilateral. V ascular: Dorsalis pedis pulse: 1 /4 [...] - M79.675 4 . A therosclerosis of tangirnaq arteries of extremities with intermittent claudication, bilateral legs - I70.213 5 . T ype 2 diabetes mellitus with other circulatory complications - E11.59 6 .?Acquired keratosis [keratoderma] palmaris et plantaris - L85.1 Plan: * Treatment: 2. A therosclerosis of tangirnaq arteries of extremities with intermittent claudication, bilateral legs Notes: Check and protect LE bilateral daily. Call if any changes or concerns. 3. T ype 2 diabetes mellitus with other circulatory complications Notes: Diabetic Foot Care: The patient was educated on diabetes and the lower extremity. The patient was instructed to check his feet daily to report any problems or signs of infection immediately. 4. A cquired keratosis [keratoderma] palmaris et plantaris Notes: Hyperkeratosis x 2 4th digit distal tuft: The skin was prepped with isopropyl alcohol. Using a 15-blade scalpel, the hyperkeratotic skin lesions were sharply debrided down to healthy appearing skin. * Follow Up: 1 0 - 12 weeks (Reason: At-Risk Foot care, sooner if problems develop.) * Billing Information: * Visit Code: * Procedure Codes: * Electronic signature of VALERIE GARCIA DPM on 05/29/2025 at 09:52 AM CDT Sign off status: Pending * Provider: Marylou GACRIA Date: 0 05/17/2025 Generated for Minh godoy/Nicholas/Dick on: 0 05/29/2025 09:52 AM CDT History and Physical Notes * [...] seen by Dr. Julien was 11/2024., Initials nd Examination Category Sub-Category Detail Notes Category Not es Dermatologic Skin findings: Skin is thin, at rophic and lacking pedal hair Nail pathology: Nails 1, 2, 3, 4, an d 5 bilateral are elongated, thick, discolored, and dystrophic with subungual debris. They are painful to palpation Hyperkeratotic Skin Lesion There is evid ence of hyperkeratotic skin lesions present on the, distal aspect of the 4th digit, bilateral Neurologic Gross sensation Grossly intact t o [...]
--- NOTE | 2025-06-18 14:00 | WPDHOMESLEEP ---
Sleep Study - Home Unattended Date of Study: 05/29/25 Ordering Provider: Sheldon Vega APRN Interpreting Provider: Nicolette Rausch DO Home Sleep Study Type: Watch PAT Height: 1.73 m Weight: 100.244 kg Body Mass Index: 33.5 Neck Circumference (inches): 15 [place]: 0 Reason for Sleep Study Trouble falling and staying asleep Sleep History The patient is a 70-year-old female who had a sleep study ordered by the pulmonary group for evaluation of sleep apnea. The patient admits to trouble falling and staying asleep. She denies snoring loudly, interruptions in breathing while asleep, choking or gasping at night, and having trouble breathing on her back. She denies morning headaches. She does have a dry or sore mouth, throat in the morning. She does have nocturnal heartburn. She urinates twice throughout the night. She does have difficulty returning to sleep if she wakes up throughout the night. She denies any hypnotic or sedative use. She denies feeling anxious about sleep. She denies feeling tired or sleepy during the day. She denies feeling tired in the morning. She denies having the urge to fall asleep during the day. She denies feeling drowsy while driving. She denies sleep paralysis, cataplexy, and hypnagogic/hypnopompic hallucinations. She denies clenching or grinding her teeth. She denies kicking or jerking her legs excessively. She denies having a restless feeling in her legs. She goes to bed at 10:30 p.m. on workdays and at 10:45 on her days off. It takes her 30 minutes to fall asleep. She gets 8 hours of sleep per night. Her sleep is somewhat restorative on her days off. She denies taking any planned naps. She denies dream enactment behavior. She denies sleepwalking. She consumes 1 to 2 cups of a caffeinated beverage per day. She denies tobacco and alcohol use. She denies exercising on a regular basis. [facility] Past Medical History Medical History Colon cancer screening HTN (hypertension) Diabetes mellitus GERD (gastroesophageal reflux disease) Vocal cord dysfunction Anxiety Surgical History Surgical History H/O gastric bypass Social History Social History Smoking status: Never smoker Second hand tobacco smoke exposure: Yes Alcohol intake: never Drinks per week: 0 Substance use: never Substance use type: does not use Living arrangements: with family Spiritual care concerns: No Medications Home Medications ?Medication ?Instructions ?Recorded ?Confirmed ?Type aspirin 81 mg tablet 81 mg PO EVERY OTHER DAY 02/19/21 04/13/25 History atorvastatin 10 mg tablet 10 mg PO DAILY 02/19/21 04/13/25 History losartan 100 1 tablet PO DAILY 02/19/21 04/13/25 History mg-hydrochlorothiazide 25 mg tablet methylphenidate HCl 5 mg tablet 5 mg PO DAILY PRN Spasms 02/19/21 04/13/25 History (Ritalin) pantoprazole 40 mg tablet,delayed 40 mg PO DAILY 02/19/21 04/13/25 History release inhalational spacing device #1 ea 06/30/22 04/13/25 Rx tirzepatide 10 mg/0.5 mL 12.5 mg subcut WEEKLY 09/03/23 04/13/25 History subcutaneous pen injector (Mounjaro) ipratropium bromide 21 mcg (0.03 2 spray intranasal TID #90 mL 05/16/24 04/13/25 Rx %) nasal spray montelukast 10 mg tablet See Rx Instructions .Route 08/10/24 04/13/25 Rx .COMPLEX #90 tabs insulin degludec 100 unit/mL (3 20 unit subcut DAILY 09/08/24 04/13/25 History mL) subcutaneous pen (Tresiba FlexTouch U-100 insulin) budesonide-formoterol HFA 80 See Rx Instructions .Route 10/20/24 04/13/25 Rx mcg-4.5 mcg/actuation aerosol .COMPLEX #30.6 ea inhaler eszopiclone 2 mg tablet 2 mg PO ONCE #1 tablet 05/09/25 Rx Sleep Procedure The sleep study was completed using FiixT a technically adequate device with seven channels: peripheral arterial tone, actigraphy, body position, snore, respiratory movement, pulse oximetry, sleep staging, and heart rate. Prior to using the device, the patient received verbal and written instructions for its application and was provided with the help desk phone number for additional telephonic instruction with 24-hour availability of qualified personnel to answer questions. The study was scored using [facility] guidelines. Sleep Architecture The total recording time is 8 hrs, 36 min. The total sleep time is 7 hrs, 39 min. Sleep latency is 17 minutes. REM latency is 127 minutes. The patient had 10 episodes of waking. Sleep architecture shows 10.8% deep sleep, 66.8% light sleep, and (as % Total Sleep Time) showed NREM (Light 66.8%; Deep 10.8%), and a 22.4% stage REM. The patient spent 82.3% of total sleep time in the supine position. Sleep efficiency was 88.95. Respiratory Analysis The overall AHI (pAHI 4%:) is 14.5. The overall AHI (pAHI 3%:) is 18.6. The central AHI is 1.1. The AHI was 15.5 in NREM and 30.8 in REM sleep. The AHI was 19.5 in Supine and 14.6 in Non-supine sleep. Percent of Ede Hawkins respirations is 0.0. Oximetry Data The oxygen desaturation index (KETTY 4%:) is 11.1. The mean saturation is 95%, and the lowest saturation is 73%. Time spent with saturation < 88% is 5.1 minutes. Snoring Profile Snoring average intensity is 42 dB. The patient snored above 45 decibels for 65.9 minutes, 14.4% of sleep time. Cardiac Profile The average pulse rate is 62 beats per minutes. The lowest pulse rate is 30 bpm. The highest pulse rate reported is 90 bpm. Atrial fibrillation was not detected. Premature beats occur 0.5 per minute. Assessment and Plan Assessment and Plan (1) Obstructive sleep apnea: Code(s): G47.33 - Obstructive sleep apnea (adult) (pediatric) Status: Acute Assessment and Plan: The patient had an overall AHI of 14.5 with desaturation down to 73%. This is consistent with mild sleep apnea. Due to the patient's hypertension, she qualifies for treatment. I recommend that the patient have a CPAP Titration study with the use of a hypnotic to ensure we obtain enough sleep data and find an optimal pressure setting. If the patient's insurance won't cover a CPAP Titration study, the patient could do a trial of AutoPAP 5-15 cm H2O. Data The data obtained during this sleep study is adequate for interpretation. Certification This sleep study has been reviewed by a board certified sleep medicine physician.
[2025-06-19 15:47] VITALS: BMI 33.5
== END 2025-05-30 13:45 | disposition home or self-care (01) ==
LOC: ANHCSM 09:33
PROVIDERS: PCP Internal Medicine; Visit Provider Nurse Practitioner Family
DX: G47.33 Obstructive sleep apnea (adult) (pediatric) (principal)
CPT/HCPCS: 95800

== ENCOUNTER 2025-06-29 07:19 | Outpatient (CLI) | payer MEDICARE, SELFPAY ==
--- OUTSIDE RECORDS SUMMARY | 2024-11-09 04:40 | XMS_ITS ---
Author Organization [facility] Address [address] [place], [place] [id number] Care Team Providers Care Cardboard Cutter Name Role Phone LUIS CEBALLOS Unavailable [phone] Tiago Julien Unavailable Unavailable REASON FOR VISIT Patient presents for at-risk foot care . The patient has painful toenails that are causing difficulty with ambulation and shoegear. The onset is gradual. The patient has diabetes mellitus Encounters Encounter Location Date Provider Diagnosis [facility] [address] [place], [place] [id number] 11/09/2024 LUIS CEBALLOS Tinea unguium B35.1 ; Pain in right toe(s) M79.674 ; Pain in left toe(s) M79.675 ; Atherosclerosis of seneca arteries of extremities with intermittent claudication, bilateral legs I70.213 and Type 2 diabetes mellitus with other circulatory complications E11.59 Assessments Encounter Date Diagnosis (ICD Code) Assessment Notes Treatment Notes Treatment Clinical Notes Section Notes 11/09/2024 Tinea unguium (ICD-10 - B35.1) NAIL DEBRIDEMENT: Nails 1-5 Bilateral were debrided extensively with nail nippers and emery board, reducing length and girth to pink healthy tissue with any subungual debris and necrotic tissue removed 11/09/2024 Pain in right toe(s) (ICD-10 - M79.674) 11/09/2024 Pain in left toe(s) (ICD-10 - M79.675) 11/09/2024 Atherosclerosis of seneca arteries of extremities with intermittent claudication, bilateral legs (ICD-10 - I70.213) 11/09/2024 Type 2 diabetes mellitus with other circulatory complications (ICD-10 - E11.59) Diabetic Foot Care: The patient was educated on diabetes and the lower extremity. The patient was instructed to check his feet daily to report any problems or signs of infection immediately. The patient was provided written information on Diabetic Foot Care as well as the Amputation Prevention Guide. Plan Of Treatment Treatment Notes Assessment Notes Tinea unguium NAIL DEBRIDEMENT: Na ils 1-5 Bilateral were debrided extensively with nail nippers and emery board, reducing length and girth to pink healthy tissue with any subungual debris and necrotic tissue removed Type 2 diabetes mellitus wit h other circulatory complications Diabetic Foot Care: The patient was educated on diabetes and the lower extremity. The patient was instructed to check his feet daily to report any problems or signs of infection immediately. The patient was provided written information on Diabetic Foot Care as well as the Amputation Prevention Guide. Next Appt Details Follow Up: 10 - 12 weeks, Re ason: At-Risk Foot care, sooner if problems develop. Provider Name:SRIKANTH PEREZ, 07/19/2025 09:50:00 AM, [address] [place] [address], [phone], Progress Notes * FRANCOIS MACKOLAYINKADOB:1955 (70 yo F)Acc No.[id number]:11/09/2024 Patient: LISANDRO VELAZQUEZ Provider: Cristina Ceballos DPM :1955 A ge:69 Y S ex:Female Date:11/09/2024 Address:[address] [place], [place] [phone] Subjective: * Chief Complaints: * 1 . Patient presents for at-risk foot care . The patient has painful toenails that are causing difficulty with ambulation and shoegear. The onset is gradual. The patient has diabetes mellitus. * HPI: H PI: General care P atient presents to the office for diabetic foot care. Patient states that their nails are thickened, elongated and painful. Patient states that it is aggravated by shoe gear. Onset is gradual., Patient denies taking prescription blood thinners but does take a daily aspirin., Date last seen by Dr. Julien was 10/2024., Initials [facility] , Patient presents to the office for diabetic foot care. Patient states that their nails are thickened, elongated and painful. Patient states that it is aggravated by shoe gear. Onset is gradual., Patient denies taking blood thinners., Date last seen by Dr. Mendez was February 2024., Initials JR. * ROS: G eneral / Constitutional: Patient denies c hills, fever, weight loss. ? M usculoskeletal: Patient denies w eakness, broken foot bone. ? P eripheral Vascular: Patient denies p ain / cramping in legs after exertion, ulceration of feet. S kin: Patient complains of f ungal nails, nail changes. ? N eurologic: Patient denies b alance difficulty, confusion, difficulty speaking, dizziness. * Medical History: * Medications: N one Objective: * Vitals: * Examination: P hysical Examination: General appearance: A lert, pleasant, well-nourished and in no acute distress. D ermatologic: Skin findings: S kin is thin, atrophic and lacking pedal hair. Nail pathology: N ails 1, 2, 3, 4, and 5 bilateral are elongated, thick, discolored, and dystrophic with subungual debris. They are painful to palpation. ? V ascular: Dorsalis pedis pulse: 1 /4 b ilateral. Posterior tibial pulse: 0 /4 bilateral. Capillary refill: g reater than 3 seconds. Edema: N o edema bilateral. N eurologic: Gross sensation G rossly intact to light touch. There is negative Tinel's sign. M usculoskeletal: Muscle Strength M uscle strength is 5/5 in regards to dorsiflexion, plantarflexion, inversion, and eversion in bilateral lower extremities. ? Assessment: * Assessment: 1. T inea unguium - B35.1 (Primary) 2 . P ain in right toe(s) - M79.674? 3. P ain in left toe(s) - M79.675 4 . A therosclerosis of seneca arteries of extremities with intermittent claudication, bilateral legs - I70.213 5 . T ype 2 diabetes mellitus with other circulatory complications - E11.59 Plan: * Treatment: 2. T ype 2 diabetes mellitus with other circulatory complications Notes: Diabetic Foot Care: The patient was educated on diabetes and the lower extremity. The patient was instructed to check his feet daily to report any problems or signs of infection immediately. The patient was provided written information on Diabetic Foot Care as well as the Amputation Prevention Guide. * Follow Up: 1 0 - 12 weeks (Reason: At-Risk Foot care, sooner if problems develop.) * Billing Information: * Visit Code: 36859 Office Visit, Est Pt., Level 3. * Procedure Codes: * Electronic signature of LUIS CEBALLOS DPM on 06/29/2025 at 07:25 AM CDT Sign off status: Pending * Provider: Cristina Ceballos DPM Date: 0 11/09/2024 Generated for Minh Mtz/Dick on: 0 06/29/2025 07:25 AM CDT History and Physical Notes * HPI (History of Present Illness) Category Sub-Category Detail Notes Category Not es HPI General care Patient presents to the office for diabetic foot care. Patient states that their nails are thickened, elongated and painful. Patient states that it is aggravated by shoe gear. Onset is gradual., Patient denies taking prescription blood thinners but does take a daily aspirin., Date last seen by Dr. Julien was 10/2024., Initials [facility] , Patient presents to the office for diabetic foot care. Patient states that their nails are thickened, elongated and painful. Patient states that it is aggravated by shoe gear. Onset is gradual., Patient denies taking blood thinners., Date last seen by Dr. Mendez was February 2024., Initials JR Examination Category Sub-Category Detail Notes Category Not es Dermatologic Skin findings: Skin is thin, at rophic and lacking pedal hair Nail pathology: Nails 1, 2, 3, 4, an d 5 bilateral are elongated, thick, discolored, and dystrophic with subungual debris. They are painful to palpation Neurologic Gross sensation Grossly intact t o light touch. There is negative Tinel's sign Vascular Dorsalis pedis pulse: 1/4 bilateral Edema: No edema bilateral Capillary refill: greater than 3 secon ds Posterior tibial pulse: 0/4 bilateral Physical Examination General appearance: Alert, pleasant, well-nourished and in no acute distress Musculoskeletal Muscle Strength Muscle strength is 5/5 in regards to dorsiflexion, plantarflexion, inversion, and eversion in bilateral lower extremities
--- OUTSIDE RECORDS SUMMARY | 2025-01-11 04:40 | XMS_ITS ---
Author Organization [facility] Address [address] [place], [place] [address] Care Team Providers Care Caser Up Name Role Phone LUIS CEBALLOS Unavailable [phone] Tiago Julien Unavailable Unavailable REASON FOR VISIT Patient presents for at-risk foot care . The patient has painful toenails that are causing difficulty with ambulation and shoegear. The onset is gradual. The patient has diabetes mellitus Social History Tobacco Use: Social History Observation Description Date Details (start date - stop date) Never Smoker NA - NA Tobacco Use/Smoking Question Answer Notes Tobacco use: nonsmoker Encounters Encounter Location Date Provider Diagnosis [address] [id number] 01/11/2025 LUIS CEBALLOS Tinea unguium B35.1 ; Pain in right toe(s) M79.674 ; Pain in left toe(s) M79.675 ; Atherosclerosis of [place] arteries of extremities with intermittent claudication, bilateral legs I70.213 and Type 2 diabetes mellitus with other circulatory complications E11.59 Assessments Encounter Date Diagnosis (ICD Code) Assessment Notes Treatment Notes Treatment Clinical Notes Section Notes 01/11/2025 Tinea unguium (ICD-10 - B35.1) NAIL DEBRIDEMENT: Nails 1-5 Bilateral were debrided extensively with nail nippers and emery board, reducing length and girth to pink healthy tissue with any subungual debris and necrotic tissue removed 01/11/2025 Pain in right toe(s) (ICD-10 - M79.674) 01/11/2025 Pain in left toe(s) (ICD-10 - M79.675) 01/11/2025 Atherosclerosis of [place] arteries of extremities with intermittent claudication, bilateral legs (ICD-10 - I70.213) 01/11/2025 Type 2 diabetes mellitus with other circulatory [...] develop. Provider Name:SRIKANTH PEREZ, 07/19/2025 09:50:00 AM, [address] [place] [address], [id number], Progress Notes * FRANCOIS MACKOLAYINKADOB:1955 (70 yo F)Acc No.[id number]:01/11/2025 Patient: LISANDRO VELAZQUEZ Provider: Cristina Ceballos DPM :1955 A ge:69 Y S ex:Female Date:01/11/2025 Address:[address] [place], [place] [id number] Subjective: * Chief Complaints: * 1 . Patient presents for at-risk foot care . The patient has painful toenails that are causing difficulty with ambulation and shoegear. The onset is gradual. The patient has diabetes mellitus. * HPI: H PI: General care P atkajal presents to the office for diabetic foot care. Patient states that their nails are thickened, elongated and painful. Patient states that it is aggravated by shoe gear. Onset is gradual., Patient denies taking prescription blood thinners but does take a daily aspirin., Date last seen by Dr. Julien was 10/2024., Initials [facility]. * ROS: G eneral / Constitutional: Patient [...] confusion, difficulty speaking, dizziness. * Medical History: A mariela reflux, Arthritis, Sleep apnea, Back Trouble, Diabetic, Hypertension. * Family History: F ather: , stroke, arthritis, congenital heart disease. M other: , stroke, arthritis, cancer. * Social History: T obacco Use: T obacco Use/Smoking T obacco use: n onsmoker. D rugs/Alcohol: D o you drink alcohol?: No. * Medications: N one Objective: * Vitals: [...] - M79.675 4 . A therosclerosis of [place] arteries of extremities with intermittent claudication, bilateral [...] develop.) * Billing Information: * Visit Code: 26999 Office Visit, Est Pt., Level 3. * Procedure Codes: * Electronic signature of LUIS CEBALLOS DPM on 06/29/2025 at 07:25 AM CDT Sign off status: Pending * Provider: Cristina Ceballos DPM Date: 0 01/11/2025 Generated for Minh godoy/Nicholas/Dick on: 0 06/29/2025 07:25 AM CDT History [...] seen by Dr. Julien was 10/2024., Initials [facility] Examination Category Sub-Category Detail Notes Category Not [...]
--- OUTSIDE RECORDS SUMMARY | 2025-03-15 04:50 | XMS_ITS ---
Author Organization [facility] Address [address] [place], [place] [address] Care Team Providers Care Petal Shaper Hand Name Role Phone LUIS CEBALLOS Unavailable [phone] Wily Tiago Unavailable Unavailable SRIKANTH GARCIA Unavailable [phone] REASON FOR VISIT *General care Social History Tobacco Use: Social History Observation Description Date Details (start date - stop date) Never Smoker NA - NA Tobacco Use/Smoking Question Answer Notes Tobacco use: nonsmoker Vital Signs Height 67 in 03/15/2025 Weight 272 lbs 03/15/2025 BMI 42.6 kg/m2 03/15/2025 Height-cm 170.18 cm 03/15/2025 Weight-kg 123.38 kg 03/15/2025 Encounters Encounter Location Date Provider Diagnosis [address] [id number] 03/15/2025 SRIKANTH GARCIA Tinea unguium B35.1 ; Pain in right toe(s) M79.674 ; Pain in left toe(s) M79.675 ; Atherosclerosis of [place] arteries of extremities with intermittent claudication, bilateral legs I70.213 and Type 2 diabetes mellitus with other circulatory complications E11.59 Assessments Encounter Date Diagnosis (ICD Code) Assessment Notes Treatment Notes Treatment Clinical Notes Section Notes 03/15/2025 Tinea unguium (ICD-10 - B35.1) NAIL DEBRIDEMENT: Nails 1-5 Bilateral were debrided extensively with nail nippers and emery board, reducing length and girth to pink healthy tissue with any subungual debris and necrotic tissue removed 03/15/2025 Pain in right toe(s) (ICD-10 - M79.674) 03/15/2025 Pain in left toe(s) (ICD-10 - M79.675) 03/15/2025 Atherosclerosis of [place] arteries of extremities with intermittent claudication, bilateral legs (ICD-10 - I70.213) Check and protect LE bilateral daily. Call if any changes or concerns. 03/15/2025 Type 2 diabetes mellitus with other circulatory complications (ICD-10 - E11.59) Diabetic Foot Care: The patient was educated on diabetes and the lower extremity. The patient was instructed to check his feet daily to report any problems or signs of infection immediately. Plan Of Treatment Treatment Notes Assessment Notes Tinea unguium NAIL DEBRIDEMENT: Na ils 1-5 Bilateral were debrided extensively with nail nippers and emery board, reducing length and girth to pink healthy tissue with any subungual debris and necrotic tissue removed Atherosclerosis of [place] ar teries of extremities with intermittent claudication, bilateral legs Check and protect LE bilateral daily. Call if any changes or concerns. Type 2 diabetes mellitus wit h other circulatory complications Diabetic Foot Care: The patient was educated on diabetes and the lower extremity. The patient was instructed to check his feet daily to report any problems or signs of infection immediately. Next Appt Details Follow Up: 10 - 12 weeks, Re ason: At-Risk Foot care, sooner if problems develop. Provider Name:SRIKANTH PEREZ, 07/19/2025 09:50:00 AM, [address] [place] [address], [id number], Progress Notes * LISANDRO MACKDOB:1955 (70 yo F)Acc No.[id number]:03/15/2025 Patient: LISANDRO VELAZQUEZ Provider: Marylou GARCIA :1955 A ge:69 Y S ex:Female Date:03/15/2025 Address:[address] [place], [place] [phone] Subjective: * Chief Complaints: * 1 . *General care. * HPI: H PI: General care P atient presents to the office for diabetic foot care. Patient states that their nails are thickened, elongated and painful. Patient states that it is aggravated by shoe gear. Onset is gradual., Patient denies taking prescription blood thinners but does take a daily aspirin., Date last seen by Dr. Julien was 11/2024., Initials [facility]. * ROS: G eneral / [...] * Medications: N one Objective: * Vitals: S hoe Size: 12, Wt:272lbs, Wt-k.38 kg, Ht: 67 in, Ht-cm: 170.18 cm, BMI:42.6Index, Body Surface Area: 2.41. * Examination: P hysical Examination: General appearance: [...] refill: g reater than 3 seconds. Edema: + 1 e hanna bilateral foot and ankle. ? N eurologic: Gross sensation G rossly intact [...] - M79.675 4 . A therosclerosis of [place] arteries of extremities with intermittent claudication, bilateral legs - I70.213 5 . T ype 2 diabetes mellitus with other circulatory complications - E11.59 Plan: * Treatment: 2. A therosclerosis of [place] arteries of extremities with intermittent claudication, bilateral legs Notes: Check and protect LE bilateral daily. Call if any changes or concerns. 3. T ype 2 diabetes mellitus with other circulatory complications Notes: Diabetic Foot Care: The patient was educated on diabetes and the lower extremity. The patient was instructed to check his feet daily to report any problems or signs of infection immediately. * Immunizations: Immunization record has been reviewed and updated. * Follow Up: 1 0 - 12 weeks (Reason: At-Risk Foot care, sooner if problems develop.) * Billing Information: * Visit Code: 70965 Office Visit, Est Pt., Level 3. * Procedure Codes: * Electronic signature of VALERIE GARCIA DPM on 06/29/2025 at 07:25 AM CDT Sign off status: Pending * Provider: Marylou GARCIA Date: 0 03/15/2025 Generated for Minh godoy/Nicholas/Dick on: 0 06/29/2025 [...] Date last seen by Dr. Julien was 11/2024., Initials [facility] Examination Category Sub-Category Detail Notes [...] Vascular Dorsalis pedis pulse: 1/4 bilateral Edema: +1 edema bilateral f oot and ankle Capillary refill: greater than 3 secon ds Posterior tibial pulse: 0/4 bilateral Physical Examination General appearance: Alert, pleasant, well-nourished and in no acute distress Musculoskeletal Muscle Strength Muscle strength is 5/5 in regards to dorsiflexion, plantarflexion, inversion, and eversion in bilateral lower extremities
--- NOTE | ~2025-06-29 | MM_ITS ---
EXAMINATION: MM screening [facility] BI w [facility] HISTORY: Screening TECHNIQUE: Craniocaudal and mediolateral oblique 3-D tomosynthesis images were obtained and synthetic 2-D images were generated. CAD analysis was submitted and interpreted. COMPARISON: Mammogram 06/15/2024 and 05/21/2023 BREAST PARENCHYMAL COMPOSITION: Not Dense: The breasts are almost entirely fatty. FINDINGS: There is no evidence of suspicious mass, calcification, or architectural distortion to suggest malignancy. There has been no suspicious interval change. IMPRESSION: 1. No mammographic evidence of malignancy. Recommend routine screening mammography in one year. BI-RADS Category 2: Benign finding(s) Reviewed, dictated and finalized at location Q. IMPRESSION: 1. No mammographic evidence of malignancy. Recommend routine screening mammogra phy in one year. BI-RADS Category 2: Benign finding(s)
--- OUTSIDE RECORDS SUMMARY | 2025-06-29 07:25 | XMS_ITS | Clinical Summary ---
Author Organization [facility] [address] Address [address] [place] [address] Care Team Providers Care Credit Resolution Representative Name Role Phone Tiago Julien MD Primary Care Provider [phone] Allergies No known active allergies Medications pantoprazole [...] 0 12/28/2022 Body mass index 40.0-44.9, adult ([facility]) 12/28 Mixed hyperlipidemia 11/29/2017 Assessment & Plan (11/29/2017 12:32 PM PASTORAL COUNSELOR): Will start her on Lipitor given the fact that she is diabetic and LDL slightly elevated. Lipid screening 11/29/2017 Hernia of anterior abdominal wall 03/10/2014 Overview (01/29/2017): VENTRAL HERNIA NOS Sleep apnea 01/26/2014 Overview (01/28/2017): Sleep apnea Diabetes mellitus 01/26/2014 Overview (01/29/2017): Diabetes Gastroesophageal reflux disease 01/26/2014 Overview (01/29/2017): GERD (gastroesophageal reflux disease) Hypertension 05/31/2012 Assessment & Plan (11/29/2017 12:10 PM PASTORAL COUNSELOR): Will controlled now. Blood pressure was elevated when she was on Ritalin for blepharospasm. Ritalin was discontinued during hospitalization. Encounters Date Type Department Care Team Description 04/10/2025 1:15 PM CDT Procedure visit [facility] Medicine Ophthalmology [address], [address] [place] [address] Aubrey Wells MD Blepharospasm (Primary Dx) 04/10/2025 Orders Only [facility] Medicine Ophthalmology [address], [address] [place] [address] Aubrey Wells MD from Last 3 Months Surgical History Surgery Date Site/Laterality Comments OTHER SURGICAL HISTORY Gastric stapling OTHER SURGICAL HISTORY Thoracotomy for empyema OTHER SURGICAL HISTORY 10/25/2007 - 10/24/2008 Ventral hernia repair w/ mesh 9/08 HERNIA REPAIR Herniorrhaphy HYSTERECTOMY Hysterectomy HYSTERECTOMY Hysterectomy [...] on file Legal Sex Female 12:26 AM PASTORAL COUNSELOR Gender Identity Female 07/13/2021 7:45 PM CDT Sexual Orientation Straight 07/13/2021 7: 45 PM CDT Obstetrics History Last Filed Vital Signs Vital Sign Reading Time Taken Comments Blood Pressure 118/62 01/08/2025 8:45 AM CDT Pulse 62 01/08/2025 8:45 AM CDT Temperature 36.8 C (98.2 F) 11/24/2021 10:32 AM PASTORAL COUNSELOR Respiratory Rate 18 11/24/2021 10:32 AM PASTORAL COUNSELOR Oxygen Saturation 98% 01/08/2025 8:45 AM CDT [...] history exists Medical Devices Implanted Type Area Dry End Tester Device Identifier Shelf Expiration Date Model / Serial / Lot [employer] Marcial [id number] Device Closure Angio-Seal Vip [employer]dek-Plus Polyglyd L70 Cm Od6 Fr Odsec.035 In Vascular - [id number] Implanted:Qty: 1 on 11/24/2021 by Brittany Valera MD at [facility] [id number] / / Procedures Procedure Name Priority Date/Time [...] during today's treatment. us Aubrey Wells MD OPH CLINIC PROCEDURES Final Result * POCT lipid [...] Relevant to Health Maintenance Insurance [employer] MEDICARE [facility] MEDICARE T MEDICARE Care Teams Credit Resolution Representative Relationship Specialty Start Date End Date Tiago Julien MD [facility] - General 02/20/08
--- OUTSIDE RECORDS SUMMARY | 2025-06-29 07:26 | XMS_ITS | Patient Health Record ---
Author Organization [facility] Address [address] [place], [place] [id number] Care Team Providers Care Director Of Group Counseling Program Name Role Phone LUIS CEBALLOS Unavailable [phone] Wily Tiago Unavailable Unavailable SID HANKINS Unavailable [phone] SRIKANTH GARCIA Unavailable [phone] Allergies No Known Allergies Reason For Referral [...] 05/17/2025 Encounters Encounter Location Date Provider Diagnosis [facility] [place] [address], [place] [id number] 11/09/2024 LUIS SNOOK Tinea unguium B35.1 ; Pain in right toe(s) M79.674 ; Pain in left toe(s) M79.675 ; Atherosclerosis of [place] arteries of extremities with intermittent claudication, bilateral legs I70.213 and Type 2 diabetes mellitus with other circulatory complications E11.[address] [id number] 01/11/2025 LUIS SNOOK Tinea unguium B35.1 ; Pain in right toe(s) M79.674 ; Pain in left toe(s) M79.675 ; Atherosclerosis of [place] arteries of extremities with intermittent claudication, bilateral legs I70.213 and Type 2 diabetes mellitus with other circulatory complications E11.[address] [id number] 03/15/2025 SRIKANTH GARCIA Tinea unguium B35.1 ; Pain in right toe(s) M79.674 ; Pain in left toe(s) M79.675 ; Atherosclerosis of [place] arteries of extremities with intermittent claudication, bilateral legs I70.213 and Type 2 diabetes mellitus with other circulatory complications E11.[address] [id number] 05/17/2025 SRIKANTH GARCIA Tinea unguium B35.1 ; Pain in right toe(s) M79.674 ; Pain in left toe(s) M79.675 ; Atherosclerosis of [place] arteries of extremities with intermittent claudication, bilateral legs I70.213 ; Type 2 diabetes mellitus with other circulatory complications E11.59 and Acquired keratosis [keratoderma] palmaris et plantaris L85.[address] [id number] 07/06/2024 SID HANKINS Unspecified atherosclerosis of [place] arteries of extremities, bilateral legs I70.203 ; Tinea unguium B35.1 ; Other hammer toe(s) (acquired), right foot M20.41 ; Other hammer toe(s) (acquired), left foot M20.42 ; Pain in right toe(s) M79.674 and Pain in left toe(s) M79.[address] [id number] 09/07/2024 SID HANKINS Unspecified atherosclerosis of [place] arteries of extremities, bilateral legs I70.203 ; [...] and prescription treatments. 07/06/2024 Unspecified atherosclerosis of [place] arteries of extremities, bilateral legs (ICD-10 - [...] and prescription treatments. 09/07/2024 Unspecified atherosclerosis of [place] arteries of extremities, bilateral legs (ICD-10 - [...] toe(s) (ICD-10 - M79.675) 05/17/2025 Atherosclerosis of [place] arteries of extremities with intermittent claudication, bilateral [...] signs of infection immediately. 03/15/2025 Atherosclerosis of [place] arteries of extremities with intermittent claudication, bilateral legs (ICD-10 - I70.213) Check and protect LE bilateral daily. Call if any changes or concerns. 11/09/2024 Atherosclerosis of [place] arteries of extremities with intermittent claudication, bilateral legs (ICD-10 - I70.213) 01/11/2025 Atherosclerosis of [place] arteries of extremities with intermittent claudication, bilateral [...] Plan Of Treatment Next Appt Details Provider Name:SRIKANTH PEREZ, 07/19/2025 09:50:00 AM, [address] [place] [address], [phone], Insurance Providers Payer Name Payer Address Payer Phone Subscriber Number Group Number Insured Name Patient Relationship to Insured Coverage Start Date Coverage End Date [employer] [address] [place] [address] [id number] LISANDRO MACK Self - patient is the insured Medical (General) History Medical History History ICD Code acid reflux arthritis Sleep apnea Back Trouble Diabetic hypertension
== END 2025-06-29 07:20 | disposition home or self-care (01) ==
LOC: CHSIMG 07:21
PROVIDERS: PCP Internal Medicine; Visit Provider Internal Medicine
DX: Z12.31 Encounter for screening mammogram for malignant neoplasm of breast (principal)
CPT/HCPCS: 77063; 77067